=== PATIENT | male | born 1950 | race Caucasian/White ===

== ENCOUNTER 2019-11-01 09:41 | Day surgery (SDC) | payer BC, MEDICARE ==
[~2019-11-01 09:41] MED LIST: Lidocaine 1% PF 2 ML SDV INJECT SCH
[2019-11-01] MEDS: Polymyxin B/Trimethoprim 10 ML Bottle EYERT SCH ×4 (10:42→12:28)
[2019-11-01] MEDS: Brimonidine 0.2% Ophth Soln 5 ML Bottle EYERT SCH ×4 (10:47→12:28)
[2019-11-01] MEDS: Phenylephrine 2.5% Ophth Soln 2 ML Bot EYERT SCH ×5 (10:53→12:08)
[2019-11-01] MEDS: Tropicamide 1% Ophth Soln 15 ML Bottle EYERT SCH ×4 (10:58→11:39)
--- NOTE | 2019-11-01 10:58 | PCM.PREANE ---
Preanesthetic Assessment - Anesthesia/Transfusion/Family Hx Anesthesia History: Prior Anesthesia Without Reaction Family History of Anesthesia Reaction: No Transfusion History: No Prior Transfusion(s) - Review of Systems General: No Symptoms, Other (autoimmune disorder, states under control) Pulmonary: No Symptoms Cardiovascular: No Symptoms Gastrointestinal: No Symptoms Neurological: No Symptoms Other: Reports: None - Physical Assessment NPO Status Date: 10/31/19 NPO Status Time: 20:30 Vital Signs: Last Vital Signs Temp 36.7 C 11/01/19 10:25 Pulse 70 11/01/19 10:25 Resp 16 11/01/19 10:25 BP 136/89 11/01/19 10:25 Pulse Ox 99 11/01/19 10:25 Height: 1.88 m Weight: 100.244 kg ASA Class: 2 Mental Status: Alert & Oriented x3 Dentition: Reports: Normal Dentition Thyro-Mental Finger Breadths: 3 Mouth Opening Finger Breadths: 3 ROM/Head Extension: Full Lungs: Clear to Auscultation, Normal Respiratory Effort - Allergies Allergies/Adverse Reactions: Allergies Allergy/AdvReac Type Severity Reaction Status Date / Time No Known Allergies Allergy Verified 10/31/19 15:46 - Blood Blood Available: No Product(s) Available: None - Anesthesia Plan Pre-Op Medication Ordered: None - Acknowledgements Anesthesia Type Planned: MAC Pt an Appropriate Candidate for the Planned Anesthesia: Yes Alternatives and Risks of Anesthesia Discussed w Pt/Guardian: Yes Pt/Guardian Understands and Agrees with Anesthesia Plan: Yes PreAnesthesia Questionnaire - HOME MEDS Home Medications: Home Meds Econazole Nitrate 1 dose TOP ASDIRECTED PRN 10/31/19 [History] mycophenolate mofetiL [Mycophenolate Mofetil] 1,000 mg PO BID 10/31/19 [History] predniSONE [Prednisone] 20 mg PO DAILY 10/31/19 [History] - CURRENT (IN HOUSE) MEDS Current Meds: Current Medications Brimonidine Tartrate (Alphagan 0.2% Oph Soln) 0 ml EYERT ASDIRECTED BRUNILDA Stop: 11/01/19 18:00 Cefuroxime Sodium (Zinacef) 0 mg EYERT ASDIRECTED BRUNILDA Stop: 11/01/19 18:00 Lidocaine HCl (Xylocaine-Mpf 1%) 1 ml INJECT ASDIRECTED BRUNILDA Stop: 11/01/19 18:00 Phenylephrine HCl (Stu-Synephrine 2.5% Ophth Soln) 0 ml EYERT ASDIRECTED BRUNILDA Stop: 11/01/19 18:00 Pilocarpine HCl (Pilocar 4% Ophth Soln) 0 ml EYERT ASDIRECTED BRUNILDA Stop: 11/01/19 18:00 Polymyxin/Trimethoprim Sulfate (Polytrim Ophth Soln) 0 ml EYERT ASDIRECTED BRUNILDA Stop: 11/01/19 18:00 Tetracaine HCl (Tetracaine 0.5% Steri-Unit Rima) 0 ml EYERT ASDIRECTED BRUNILDA Stop: 11/01/19 18:00 Tropicamide (Mydriacyl 1% Ophth Soln) 0 ml EYERT ASDIRECTED BRUNILDA Stop: 11/01/19 18:00
[2019-11-01] MEDS: Tetracaine HCl/PF 0.5% 4 ML Bottle EYERT SCH ×2 (11:43→12:19)
[2019-11-01] MEDS: Cefuroxime 10 MG/ML SYRINGE EYERT SCH ×2 (12:23→12:27)
[2019-11-01] MEDS: Pilocarpine 4% Ophth Soln 15 ML Bot EYERT SCH ×2 (12:23→12:28)
--- NOTE | 2019-11-01 12:30 | PCM48HPAN ---
Post Anesthesia Note - EVALUATION WITHIN 48HRS OF ANESTHETIC Vital Signs in Normal Range: Yes Patient Participated in Evaluation: Yes Respiratory Function Stable: Yes Airway Patent: Yes Cardiovascular Function Stable: Yes Hydration Status Stable: Yes Pain Control Satisfactory: Yes Nausea and Vomiting Control Satisfactory: Yes Mental Status Recovered: Yes Vital Signs: Last Vital Signs Temp 36.7 C 11/01/19 10:25 Pulse 70 11/01/19 10:25 Resp 16 11/01/19 10:25 BP 136/89 11/01/19 10:25 Pulse Ox 99 11/01/19 10:25
== END 2019-11-01 12:38 | disposition home or self-care (01) ==
LOC: JD.SDS 09:41
PROVIDERS: ATTEND Ophthalmology
DX: H25.813 Combined forms of age-related cataract, bilateral (principal); H35.363 Drusen (degenerative) of macula, bilateral; H35.3131 Nonexudative age-related macular degeneration, bilateral, early dry stage; H16.103 Unspecified superficial keratitis, bilateral; H16.223 Keratoconjunctivitis sicca, not specified as Sjogren's, bilateral; H02.834 Dermatochalasis of left upper eyelid; H02.831 Dermatochalasis of right upper eyelid; L12.0 Bullous pemphigoid; Z87.891 Personal history of nicotine dependence
CPT/HCPCS: 66984; C1780; J0697; J2001

== ENCOUNTER 2020-07-04 06:14 | Inpatient (IN) | payer BC, MEDICARE ==
--- NOTE | 2020-07-03 13:20 | PCM.PREANE ---
Preanesthetic Assessment - Anesthesia/Transfusion/Family Hx Anesthesia History: Prior Anesthesia Without Reaction Family History of Anesthesia Reaction: No Transfusion History: No Prior Transfusion(s) Intubation History: Unknown - Review of Systems General: No Symptoms Pulmonary: No Symptoms (Quit smoking Beers per night) Cardiovascular: No Symptoms Gastrointestinal: No Symptoms (History of Sjogren's Syndrome) Neurological: No Symptoms Other: Reports: None (AutoImmune Disorder/History of bladder distention-self catheterization.) - Physical Assessment NPO Status Date: 07/03/20 NPO Status Time: 20:00 Vital Signs: HR:90 B/P:147/97 Resp:16 Temp:97 Sat:97% Height: 1.91 m Weight: 98 kg ASA Class: 3 Mental Status: Alert & Oriented x3 Airway Class: Mallampati = 2 Dentition: Reports: Normal Dentition, [place](s), Implants, Caries Thyro-Mental Finger Breadths: 3 Mouth Opening Finger Breadths: 3 ROM/Head Extension: Full Lungs: Clear to Auscultation, Normal Respiratory Effort Cardiovascular: Regular Rate, Regular Rhythm, No Murmurs - Lab Values: Laboratory Last Values MRSA (PCR) Negative 06/19/20 14:01 All labs reviewed and noted and within acceptable ranges to proceed with scheduled procedure. - Imaging/EKG Impressions: EKG: SR rate=79m LAD (borderline), left atrial enlargement CXR: negative - Allergies Allergies/Adverse Reactions: Allergies Allergy/AdvReac Type Severity Reaction Status Date / Time No Known Allergies Allergy Verified 07/03/20 14:13 - Anesthesia Plan Pre-Op Medication Ordered: Other (Pre-Op meds: lyrica, oxycodone, tylenol all P.O. @) - Acknowledgements Anesthesia Type Planned: General Anesthesia, Spinal Pt an Appropriate Candidate for the Planned Anesthesia: Yes Alternatives and Risks of Anesthesia Discussed w Pt/Guardian: Yes Pt/Guardian Understands and Agrees with Anesthesia Plan: Yes PreAnesthesia Questionnaire - HOME MEDS Home Medications: Home Meds mycophenolate mofetiL [Mycophenolate Mofetil] 1,000 mg PO BID 10/31/19 [History] Calcium Carbonate [Calcium] 500 mg PO DAILY 07/03/20 [History] Cholecalciferol (Vitamin D3) [Vitamin D3] 5,000 unit PO DAILY 08/18/20 [History] Ciclopirox [Loprox 0.77% Lotion] 1 dose TOP BID PRN 07/03/20 [History] Clobetasol [Temovate 0.05%] 1 dose TOP BID PRN 07/03/20 [History] - CURRENT (IN HOUSE) MEDS Current Meds: Current Medications Lactated Ringer's (Ringers, Lactated) 1,000 mls @ 125 mls/hr IV ASDIRECTED BRUNILDA Stop: 07/04/20 23:00 Lidocaine/Sodium Bicarbonate (Buffered Lidocaine 1% In Ns 8.4%) 0.25 ml IDERM ONETIME PRN PRN Reason: Prior to IV Start Stop: 07/04/20 18:00 Sodium Chloride (Saline Flush) 10 ml FLUSH ASDIRECTED PRN PRN Reason: Keep Vein Open Stop: 07/04/20 18:00
[~2020-07-04 06:14] MED LIST changes: +Acetaminophen 325 MG Tab PO SCH; +Lactated Ringers 1,000 ML IV SCH; -Lidocaine 1% PF 2 ML SDV INJECT SCH; +Lidocaine 1%/Sod Bicarbonate in NS 8.4% 1 ML Syringe IDERM PRN; +Pregabalin 25 MG Cap PO SCH; +Sodium Chloride 0.9% 10 ML Syringe FLUSH PRN; +oxyCODONE ER 10 MG TAB.ER PO SCH
[2020-07-04] MEDS ORDERED: Lidocaine 1% 4 ML ONE (06:22)
[2020-07-04] MEDS ORDERED: Lactated Ringers 2,000 ML ONE (06:22)
[2020-07-04] MEDS ORDERED: Ondansetron 4 MG/2 ML SDV ONE (06:22)
[2020-07-04] MEDS ORDERED: Ketorolac 30 MG/ML SDV ONE (06:22)
[2020-07-04] MEDS ORDERED: fentaNYL 100 MCG/2 ML SDV ONE (06:23)
[2020-07-04] MEDS ORDERED: Propofol 200 MG/20 ML SDV ONE ×2 (06:23→08:20)
[2020-07-04] MEDS ORDERED: Midazolam 1 MG/ML 2 ML SDV ONE (06:24)
[2020-07-04] MEDS ORDERED: Ketamine 500 mg/10 ML MDV ONE (06:25)
[2020-07-04] MEDS ORDERED: ceFAZolin 1 GM Vial ONE (06:28)
[2020-07-04] MEDS ORDERED: Iodine/Sodium Iodide 2% Tincture 30 ML Bottle ONE (06:29)
[2020-07-04] MEDS ORDERED: Vancomycin 1 GM SDV ONE (06:29)
[2020-07-04] MEDS ORDERED: Bupivacaine 0.25% 10 ML SDV ONE (06:29)
[2020-07-04] MEDS ORDERED: Morphine 8 MG, EPINEPHrine 0.3 MG, Cefuroxime 750 MG, Ketorolac 30 MG, Sodium Chloride ... PRN ×5 (07:06)
[2020-07-04] MEDS ORDERED: Ketorolac 15 MG/ML SDV IVPUSH PRN (07:06)
[2020-07-04] MEDS ORDERED: Naloxone 0.4 MG/ML SDV IVPUSH PRN (07:07)
[2020-07-04] MEDS ORDERED: Bisacodyl 5 MG Tab PO PRN (07:07)
[2020-07-04] MEDS ORDERED: Morphine 2 MG/ML SYRINGE IVPUSH PRN (07:07)
[2020-07-04] MEDS ORDERED: Ondansetron 4 MG/2 ML SDV IVPUSH PRN ×2 (07:07→07:33)
[2020-07-04] MEDS ORDERED: Dexamethasone 4 MG/ML 5 ML MDV ONE ×2 (07:08)
[2020-07-04] MEDS ORDERED: HYDROmorphone 0.5 MG/0.5 ML Syringe IVPUSH PRN (07:33)
[2020-07-04] MEDS ORDERED: fentaNYL 100 MCG/2 ML SDV IVPUSH PRN (07:33)
[2020-07-04] MEDS ORDERED: diphenhydrAMINE 50 MG/ML SDV IVPUSH PRN (07:33)
[2020-07-04] MEDS ORDERED: ePHEDrine 50 MG/ML SDV IVPUSH PRN (07:33)
[2020-07-04] MEDS ORDERED: Phenylephrine 1 MG in Sodium Chloride 0.9% 10 ML IV PRN (07:45)
[2020-07-04] MEDS ORDERED: ePHEDrine Sulfate/0.9% NaCl/Pf 25 MG/5 ML SYRINGE IV ONE (08:29)
--- NOTE | 2020-07-04 09:12 | PCM.OPNOTE ---
- General Post-Op/Procedure Note Date of Surgery/Procedure: 07/04/20 Operative Procedure(s): right total hip arthroplasty Pre Op Diagnosis: right hip osteoarthritis Post-Op Diagnosis: Same Anesthesia Technique: Local, MAC, Spinal Primary Surgeon: Kun Winkler Anesthesia Provider: Selam Dickerson Bundle Cutter: Alyssa Blue Bundle Cutter: Radha Houser EBNichole in mLs: 300 Complications: None Condition: Good Free Text/Narrative:: Intake & Output 07/03/20 07/04/20 07/04/20 22:59 06:59 14:59 Output Total 375 Balance -375 60 cup 8 stem 36+5 head
--- NOTE | 2020-07-04 09:32 | PCM.POSTAN ---
POST ANESTHESIA ASSESSMENT - MENTAL STATUS Mental Status: Alert - VITAL SIGNS Vital Signs: Last Vital Signs Temp 97 07/04/20923 Pulse 79 07/04/20923 Resp 11 07/04/20923 BP 116/80 07/04/20923 Pulse Ox 96 07/04/20923 - RESPIRATORY Respiratory Status: Respiratory Rate WNL, Airway Patent, O2 Saturation Stable - CARDIOVASCULAR CV Status: Pulse Rate WNL, Blood Pressure Stable - GASTROINTESTINAL GI Status: No Symptoms - POST OP HYDRATION Hydration Status: Adequate & Stable
--- NOTE | 2020-07-04 10:03 | CR ---
Pelvis and right hip: AP view of the pelvis was obtained as well as crosstable lateral views of the right hip. Right hip prosthesis is seen. Components are aligned. Soft tissue air is noted from the surgical procedure. Disc space narrowing is noted within the lower lumbar spine with endplate osteophytes. Mild joint space narrowing is seen within the left hip. Impression: 1. Recently placed right hip prosthesis. 2. Degenerative change as noted above. Diagnostic code #3 This report was dictated in MDT
[2020-07-04] MEDS ORDERED: CICLOPIROX TOP PRN (10:41)
[2020-07-04] MEDS ORDERED: CLOBETASOL TOP PRN (10:41)
[2020-07-04] MEDS: Acetaminophen/oxyCODONE 325-5 MG Tab PO PRN ×2 (14:33→19:44)
[2020-07-04] MEDS: ceFAZolin 2 GM in Premix Bag 1 BAG IV SCH ×2 (14:34→22:51)
[2020-07-04] MEDS ORDERED: Cyclobenzaprine 10 MG Tab PO PRN (15:00)
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
[2020-07-04] MEDS ORDERED: Acetaminophen 325 MG Tab PO PRN (16:45)
[2020-07-04] MEDS: Docusate Sodium 100 MG Cap PO SCH (20:36)
[2020-07-04] MEDS: Famotidine 20 MG Tab PO SCH (20:36)
[2020-07-04] MEDS ORDERED: Sennosides 8.6 MG Tab PO PRN (21:00)
[2020-07-04] MEDS ORDERED: Magnesium Hydroxide 400 MG/5 ML Susp 30 ML Cup PO PRN (21:00)
[2020-07-05] MEDS: Acetaminophen/oxyCODONE 325-5 MG Tab PO PRN ×2 (03:07→09:40)
[2020-07-05] MEDS: ceFAZolin 2 GM in Premix Bag 1 BAG IV SCH (06:58)
--- NOTE | 2020-07-05 07:07 | PCM48HPAN ---
Post Anesthesia Note - EVALUATION WITHIN 48HRS OF ANESTHETIC Vital Signs in Normal Range: Yes Patient Participated in Evaluation: Yes Respiratory Function Stable: Yes Airway Patent: Yes Cardiovascular Function Stable: Yes Hydration Status Stable: Yes Pain Control Satisfactory: Yes Nausea and Vomiting Control Satisfactory: Yes Mental Status Recovered: Yes Vital Signs: Last Vital Signs Temp 36.4 C 07/05/20 03:15 Pulse 67 07/05/20 03:15 Resp 16 07/05/20 03:15 BP 141/91 H 07/05/20 03:17 Pulse Ox 95 07/05/20 03:15
--- NOTE | 2020-07-05 07:10 | PCM.SURGPN ---
- General Info Date of Service: 07/05/20 POD#: 1 Functional Status: Reports: Pain Controlled, Tolerating Diet, Ambulating, Urinating, Incentive Spirometry, Other (The pt notes soreness at quad today. He is pleased with his progress regarding mobility.) - Patient Data Vitals - Most Recent: Last Vital Signs Temp 97.5 F 07/05/20 03:15 Pulse 67 07/05/20 03:15 Resp 16 07/05/20 03:15 BP 141/91 H 07/05/20 03:17 Pulse Ox 95 07/05/20 03:15 Weight - Most Recent: 221 lb 4.8 oz I&O - Last 24 Hours: Intake & Output 07/04/20 07/05/20 07/05/20 22:59 06:59 14:59 Intake Total 1330 850 Output Total 1200 450 Balance 130 400 Lab Results Last 24 Hrs: Laboratory Results - last 24 hr 07/04/20 07/05/20 07/05/20 Range/Units 06:37 05:40 05:40 WBC 8.03 (4.23-9.07) K/mm3 RBC 3.96 L (4.63-6.08) M/mm3 Hgb 12.1 L (13.7-17.5) gm/dl Hct 38.5 L (40.1-51.0) % MCV 97.2 H (79.0-92.2) fl MCH 30.6 (25.7-32.2) pg MCHC 31.4 L (32.2-35.5) g/dl RDW Std Deviation 43.0 (35.1-43.9) fL Plt Count 224 (163-337) K/mm3 MPV 10.3 (9.4-12.3) fl PT (9.7-12.0) SECONDS INR APTT (22-31) SECONDS Sodium 136 (136-145) mEq/L Potassium 4.7 (3.5-5.1) mEq/L Chloride 103 (98-107) mEq/L Carbon Dioxide 25 (21-32) mEq/L Anion Gap 12.7 (5-15) BUN 16 (7-18) mg/dL Creatinine 1.0 (0.7-1.3) mg/dL Est Cr Clr Drug Dosing 83.34 mL/min Estimated GFR (MDRD) > 60 (>60) mL/min BUN/Creatinine Ratio 16.0 (14-18) Glucose 100 (80-115) mg/dL Calcium 8.4 L (8.5-10.1) mg/dL Phosphorus 4.0 (2.6-4.7) mg/dL Magnesium 1.8 (1.8-2.4) mg/dl Total Bilirubin 0.3 (0.2-1.0) mg/dL AST 26 (15-37) U/L ALT 16 (16-63) U/L Alkaline Phosphatase 75 (46-116) U/L Troponin I < 0.017 (0.00-0.056) ng/mL Total Protein 6.2 L (6.4-8.2) g/dl Albumin 2.7 L (3.4-5.0) g/dl Globulin 3.5 gm/dL Albumin/Globulin Ratio 0.8 L (1-2) Blood Type B POSITIVE Gel Antibody Screen Negative 07/05/20 Range/Units 05:40 WBC (4.23-9.07) K/mm3 RBC (4.63-6.08) M/mm3 Hgb (13.7-17.5) gm/dl Hct (40.1-51.0) % MCV (79.0-92.2) fl MCH (25.7-32.2) pg MCHC (32.2-35.5) g/dl RDW Std Deviation (35.1-43.9) fL Plt Count (163-337) K/mm3 MPV (9.4-12.3) fl PT 11.0 (9.7-12.0) SECONDS INR 1.03 APTT 26 (22-31) SECONDS Sodium (136-145) mEq/L Potassium (3.5-5.1) mEq/L Chloride (98-107) mEq/L Carbon Dioxide (21-32) mEq/L Anion Gap (5-15) BUN (7-18) mg/dL Creatinine (0.7-1.3) mg/dL Est Cr Clr Drug Dosing mL/min Estimated GFR (MDRD) (>60) mL/min BUN/Creatinine Ratio (14-18) Glucose (80-115) mg/dL Calcium (8.5-10.1) mg/dL Phosphorus (2.6-4.7) mg/dL Magnesium (1.8-2.4) mg/dl Total Bilirubin (0.2-1.0) mg/dL AST (15-37) U/L ALT (16-63) U/L Alkaline Phosphatase (46-116) U/L Troponin I (0.00-0.056) ng/mL Total Protein (6.4-8.2) g/dl Albumin (3.4-5.0) g/dl Globulin gm/dL Albumin/Globulin Ratio (1-2) Blood Type Gel Antibody Screen Med Orders - Current: Current Medications Acetaminophen (Tylenol) 650 mg PO Q6H PRN PRN Reason: Pain (mild 1-3) Aspirin (Ecotrin) 325 mg PO BID [facility] Bisacodyl (Dulcolax) 5 mg PO DAILY PRN PRN Reason: Constipation Calcium Carbonate/Glycine (Calcium Carbonate) 600 mg PO DAILY [facility] Cholecalciferol (Vitamin D3) 5,000 unit PO DAILY [facility] Cyclobenzaprine HCl (Flexeril) 10 mg PO TID PRN PRN Reason: Spasms Docusate Sodium (Colace) 100 mg PO BID [facility] Last Admin: 07/04/20 20:36 Dose: 100 mg Documented by: Famotidine (Pepcid) 20 mg PO Q12H [facility] Last Admin: 07/04/20 20:36 Dose: 20 mg Documented by: Cefazolin Sodium/Dextrose 2 gm (/ Premix) 50 mls @ 100 mls/hr IV Q8H [facility] Stop: 07/05/20 07:29 Last Admin: 07/05/20 06:58 Dose: 100 mls/hr Documented by: Ketorolac Tromethamine (Toradol) 15 mg IVPUSH Q6H PRN PRN Reason: Pain Last Admin: 07/05/20 03:09 Dose: 15 mg Documented by: Magnesium Hydroxide (Milk Of Magnesia) 30 ml PO BID PRN PRN Reason: Constipation Morphine Sulfate (Morphine) 2 mg IVPUSH Q2H PRN PRN Reason: Breakthrough Pain Naloxone HCl (Narcan) 0.1 mg IVPUSH Q5M PRN PRN Reason: Oversedation Non-Formulary Medication (Clobetasol [Temovate 0.05%]) 1 dose TOP BID PRN PRN Reason: skin complications Ondansetron HCl (Zofran) 4 mg IVPUSH Q6H PRN PRN Reason: Nausea/Vomiting Oxycodone/Acetaminophen (Percocet 325-5 Mg) 1 - 2 tab PO Q4H PRN PRN Reason: Pain Last Admin: 07/05/20 03:07 Dose: 2 tab Documented by: Ciclopirox [Loprox 0 (.77% Lotion]) 0 each TOP BID PRN PRN Reason: skin complications Senna (Senna) 8.6 mg PO BID PRN PRN Reason: Constipation Discontinued Medications Acetaminophen (Tylenol) 975 mg PO ONETIME BRUNILDA Stop: 07/04/20 12:00 Last Admin: 07/04/20 07:04 Dose: 975 mg Documented by: Bupivacaine HCl (Sensorcaine-Mpf 0.25%) Confirm Administered Dose 30 ml .ROUTE .STK-MED ONE Stop: 07/04/20 06:30 Last Admin: 07/04/20 08:50 Dose: 30 ml Documented by: Cefazolin Sodium (Ancef) Confirm Administered Dose 2 gm .ROUTE .STK-MED ONE Stop: 07/04/20 06:29 Last Admin: 07/04/20 08:45 Dose: 2 gm Documented by: Morphine Sulfate 8 mg/Epinephrine HCl 0.3 mg/Cefuroxime Sodium 750 mg/Ketorolac Tromethamine 30 mg/Sodium Chloride 7.9 ml 0 mg .XX ASDIRECTED PRN PRN Reason: Pain Stop: 07/04/20 12:00 Last Admin: 07/04/20 08:50 Dose: 788.3 mg Documented by: Dexamethasone (Dexamethasone) Confirm Administered Dose 0 mg .ROUTE .STK-MED ONE Stop: 07/04/20 07:09 Dexamethasone (Dexamethasone) Confirm Administered Dose 20 mg .ROUTE .STK-MED ONE Stop: 07/04/20 07:09 Diphenhydramine HCl (Benadryl) 25 mg IVPUSH Q6H PRN PRN Reason: pruritis Stop: 07/04/20 18:00 Ephedrine Sulfate (Ephedrine Sulfate) 5 mg IVPUSH ASDIRECTED PRN PRN Reason: Hypotension Stop: 07/04/20 18:00 Ephedrine Sulfate (Ephedrine 25 Mg/5 Ml Syringe) Confirm Administered Dose 25 mg IV .STK-MED ONE Stop: 07/04/20 08:30 Fentanyl (Sublimaze) Confirm Administered Dose 100 mcg .ROUTE .STK-MED ONE Stop: 07/04/20 06:24 Fentanyl (Sublimaze) 50 mcg IVPUSH Q5M PRN PRN Reason: Pain Stop: 07/04/20 18:00 Hydromorphone HCl (Dilaudid) 0.5 mg IVPUSH ONETIME PRN PRN Reason: Pain Stop: 07/04/20 18:00 Lactated Ringer's (Ringers, Lactated) 1,000 mls @ 125 mls/hr IV ASDIRECTED BRUNILDA Stop: 07/04/20 23:00 Last Admin: 07/04/20 06:40 Dose: 125 mls/hr Documented by: Lidocaine HCl (Xylocaine-Mpf 1%) Confirm Administered Dose 4 mls @ as directed .ROUTE .STK-MED ONE Stop: 07/04/20 06:23 Lactated Ringer's (Ringers, Lactated) Confirm Administered Dose 2,000 mls @ as directed .ROUTE .STK-MED ONE Stop: 07/04/20 06:23 Phenylephrine HCl 1 mg/ Sodium (Chloride) 10.1 mls @ 1 mls/sec IV TITRATE PRN; Protocol PRN Reason: SEE COMMENTS Iodine (Iodine 2% Mild Tincture) Confirm Administered Dose 30 ml .ROUTE .STK-MED ONE Stop: 07/04/20 06:30 Last Admin: 07/04/20 08:44 Dose: 18 ml Documented by: Ketamine HCl (Ketalar) Confirm Administered Dose 500 mg .ROUTE .STK-MED ONE Stop: 07/04/20 06:26 Ketorolac Tromethamine (Toradol) Confirm Administered Dose 30 mg .ROUTE .STK-MED ONE Stop: 07/04/20 06:23 Lidocaine/Sodium Bicarbonate (Buffered Lidocaine 1% In Ns 8.4%) 0.25 ml IDERM ONETIME PRN PRN Reason: Prior to IV Start Stop: 07/04/20 18:00 Last Admin: 07/04/20 06:40 Dose: 0.25 ml Documented by: Midazolam HCl (Versed 1 Mg/Ml) Confirm Administered Dose 2 mg .ROUTE .STK-MED ONE Stop: 07/04/20 06:25 Miscellaneous Medication (Phenylephrine 1 Mg/10 Ml-Ns) Confirm Administered Dose 1 mg IV .STK-MED ONE Stop: 07/04/20 06:23 Ondansetron HCl (Zofran) Confirm Administered Dose 4 mg .ROUTE .STK-MED ONE Stop: 07/04/20 06:23 Ondansetron HCl (Zofran) 4 mg IVPUSH ONETIME PRN PRN Reason: Nausea/Vomiting Stop: 07/04/20 18:00 Oxycodone HCl (Oxycontin) 10 mg PO ONETIME BRUNILDA Stop: 07/04/20 12:00 Last Admin: 07/04/20 07:04 Dose: 10 mg Documented by: Pregabalin (Lyrica) 50 mg PO ONETIME BRUNILDA Stop: 07/04/20 12:00 Last Admin: 07/04/20 07:04 Dose: 50 mg Documented by: Propofol (Diprivan 20 Ml) Confirm Administered Dose 400 mg .ROUTE .STK-MED ONE Stop: 07/04/20 06:24 Propofol (Diprivan 20 Ml) Confirm Administered Dose 200 mg .ROUTE .STK-MED ONE Stop: 07/04/20 08:21 Sodium Chloride (Saline Flush) 10 ml FLUSH ASDIRECTED PRN PRN Reason: Keep Vein Open Stop: 07/04/20 18:00 Tranexamic Acid (Cyklokapron) Confirm Administered Dose 1,000 mg .ROUTE .STK-MED ONE Stop: 07/04/20 06:29 Last Admin: 07/04/20 08:55 Dose: 1,000 mg Documented by: Vancomycin HCl (Vancomycin) Confirm Administered Dose 1 gm .ROUTE .STK-MED ONE Stop: 07/04/20 06:30 Last Admin: 07/04/20 08:56 Dose: 1 gm Documented by: - Exam Wound/Incisions: Dressing Dry and Intact, Other (GRABIEL dressing in place and functioning properly.) General: Alert, Cooperative, No Acute Distress Lungs: Normal Respiratory Effort Extremities: Other (NVS intact for RLE. Elijah's negative.) Sepsis Event Note - Evaluation Sepsis Screening Result: No Definite Risk - Focused Exam Vital Signs: Vital Signs Temp Pulse Resp BP BP Pulse Ox 07/05/20 03:17 141/91 H 07/05/20 03:15 97.5 F 67 16 95 07/04/20 23:56 97.7 F 74 16 112/91 H 95 07/04/20 20:35 97.7 F 80 16 129/91 H 95 - Problem List Review Problem List Initiated/Reviewed/Updated: Yes - My Orders Last 24 Hours: Active Orders 24 hr Category Date Time Status Patient Status [ADT] Routine ADT 07/04/20 07:07 Active Ambulate [RC] PER UNIT ROUTINE Care 07/04/20 07:07 Active Antiembolic Devices [RC] BID Care 07/04/20 07:08 Active CIWAA Assessment [RC] Q4H Care 07/04/20 16:56 Active Cooling Warming Measures [RC] ASDIRECTED Care 07/04/20 07:33 Active Incentive Spirometry [RT Incentive Spirometry] [RC] Care 07/04/20 16:56 Active Q1HWA May Shower [RC] ASDIRECTED Care 07/04/20 07:07 Active Notify Provider Consults [RC] ASDIRECTED Care 07/04/20 07:10 Active Notify Provider [RC] ASDIRECTED Care 07/04/20 07:33 Active Oxygen Therapy [RC] ASDIRECTED Care 07/04/20 07:33 Active Pulse Oximetry [RC] ASDIRECTED Care 07/04/20 07:33 Active RT Incentive Spirometry [RC] Q1HWA Care 07/04/20 07:06 Active Ready for Discharge [RC] PER UNIT ROUTINE Care 07/05/20 07:06 Ordered Up to Chair [RC] ASDIRECTED Care 07/04/20 07:07 Active Vital Signs [RC] Q4HR Care 07/04/20 07:07 Active Consult to Physician [CONS] Routine Cons 07/04/20 07:07 Active OT Evaluation and Treatment [CONS] Routine Cons 07/04/20 07:06 Active PT Evaluation and Treatment [CONS] Routine Cons 07/04/20 07:06 Active [employer] Diet [DIET] Diet 07/04/20 Lunch Active Acetaminophen [TylenoL] Med 07/04/20 16:45 Active 650 mg PO Q6H PRN Acetaminophen/oxyCODONE [Percocet 325-5 MG] Med 07/04/20 07:06 Active 1 - 2 tab PO Q4H PRN Aspirin [Ecotrin] Med 07/05/20 09:00 Active 325 mg PO BID Calcium Carbonate Med 07/05/20 09:00 Active 600 mg PO DAILY Cholecalciferol (Vitamin D3) [Vitamin D3] Med 07/05/20 09:00 Active 5,000 unit PO DAILY Clobetasol [Temovate 0.05%] Med 07/04/20 10:41 Pending 1 dose TOP BID PRN Cyclobenzaprine [Flexeril] Med 07/04/20 15:00 Active 10 mg PO TID PRN Docusate Sodium [Colace] Med 07/04/20 21:00 Active 100 mg PO BID Famotidine [Pepcid] Med 07/04/20 21:00 Active 20 mg PO Q12H Ketorolac [Toradol] Med 07/04/20 07:06 Active 15 mg IVPUSH Q6H PRN Magnesium Hydroxide [Milk of Magnesia] Med 07/04/20 21:00 Active 30 ml PO BID PRN Morphine Med 07/04/20 07:07 Active 2 mg IVPUSH Q2H PRN Naloxone [Narcan] Med 07/04/20 07:07 Active 0.1 mg IVPUSH Q5M PRN Ondansetron [Zofran] Med 07/04/20 07:07 Active 4 mg IVPUSH Q6H PRN Patient's Own Medication [Ptom] Med 07/04/20 10:41 Active 0 each TOP BID PRN Sennosides [Senna] Med 07/04/20 21:00 Active 8.6 mg PO BID PRN bisacodyL [Dulcolax] Med 07/04/20 07:07 Active 5 mg PO DAILY PRN ceFAZolin [Ancef] 2 gm Med 07/04/20 15:00 Active Premix Bag 1 bag IV Q8H Antiembolic Hose [OM.PC] Routine Oth 07/04/20 07:06 Ordered Hip Precautions Posterior [OM.PC] Routine Oth 07/04/20 07:06 Ordered Ice Therapy [OM.PC] Per Unit Routine Oth 07/04/20 07:08 Ordered Sequential Compression Device [OM.PC] Per Unit Routine Oth 07/04/20 07:06 Ordered Resuscitation Status Routine Resus Stat 07/04/20 07:07 Ordered EKG 12 Lead [EK] Routine Ther 07/04/20 14:00 Ordered Medication Orders Acetaminophen (Tylenol) 650 mg PO Q6H PRN PRN Reason: Pain (mild 1-3) Aspirin (Ecotrin) 325 mg PO BID [facility] Bisacodyl (Dulcolax) 5 mg PO DAILY PRN PRN Reason: Constipation Calcium Carbonate/Glycine (Calcium Carbonate) 600 mg PO DAILY [facility] Cholecalciferol (Vitamin D3) 5,000 unit PO DAILY [facility] Cyclobenzaprine HCl (Flexeril) 10 mg PO TID PRN PRN Reason: Spasms Docusate Sodium (Colace) 100 mg PO BID [facility] Last Admin: 07/04/20 20:36 Dose: 100 mg Documented by: SULTANA Famotidine (Pepcid) 20 mg PO Q12H [facility] Last Admin: 07/04/20 20:36 Dose: 20 mg Documented by: SULTANA Cefazolin Sodium/Dextrose 2 gm (/ Premix) 50 mls @ 100 mls/hr IV Q8H [facility] Stop: 07/05/20 07:29 Last Admin: 07/05/20 06:58 Dose: 100 mls/hr Documented by: Infusion: 07/04/20 23:21 Dose: 100 mls/hr Documented by: Admin: 07/04/20 22:51 Dose: 100 mls/hr Documented by: Infusion: 07/04/20 15:04 Dose: 100 mls/hr Documented by: Admin: 07/04/20 14:34 Dose: 100 mls/hr Documented by: MEHRAN Ketorolac Tromethamine (Toradol) 15 mg IVPUSH Q6H PRN PRN Reason: Pain Last Admin: 07/05/20 03:09 Dose: 15 mg Documented by: MARIANO Magnesium Hydroxide (Milk Of Magnesia) 30 ml PO BID PRN PRN Reason: Constipation Morphine Sulfate (Morphine) 2 mg IVPUSH Q2H PRN PRN Reason: Breakthrough Pain Naloxone HCl (Narcan) 0.1 mg IVPUSH Q5M PRN PRN Reason: Oversedation Non-Formulary Medication (Clobetasol [Temovate 0.05%]) 1 dose TOP BID PRN PRN Reason: skin complications Ondansetron HCl (Zofran) 4 mg IVPUSH Q6H PRN PRN Reason: Nausea/Vomiting Oxycodone/Acetaminophen (Percocet 325-5 Mg) 1 - 2 tab PO Q4H PRN PRN Reason: Pain Last Admin: 07/05/20 03:07 Dose: 2 tab Documented by: Admin: 07/04/20 19:44 Dose: 2 tab Documented by: Admin: 07/04/20 14:33 Dose: 2 tab Documented by: MEHRAN Ciclopirox [Loprox 0 (.77% Lotion]) 0 each TOP BID PRN PRN Reason: skin complications Senna (Senna) 8.6 mg PO BID PRN PRN Reason: Constipation - Assessment Assessment (Free Text/Narrative):: POD#1 - s/p right LUCIUS - Plan Plan (Free Text/Narrative):: 1. Hgb 12.1 2. Discharge to home today if cleared by Hospitalist service and therapies. 3. ASA PO BID, frequent mobility, TEDs. The pt is a nonsmoker. 4. HOLD use of CellCept until eval at Clinic. The pt's case was discussed with Dr. Winkler.
--- NOTE | 2020-07-05 07:44 | PCM.DCSUM1 ---
Discharge Summary - Hospital Course Brief History: Garrett 69 yo male who underwent right LUCIUS with Dr. Winkler on 07-04-2020. The procedure was completed under spinal anesthesia with MAC. The pt tolerated the procedure well and was admitted to the Medical-Surgical Unit. The pt received Ancef terra-operatively. He participated in P.T. and O.T. and progressed well. He was allowed to WBAT and used a FWW for mobility. The pt's surgical wound was dressed with a GRABIEL dressing and remained clean and dry. On POD#1, the pt was started on 325mg ASA BID for VTE prophylaxis. The pt used TEDs and SCDs also. On POD#1, the pt's hemoglobin was 12.1. Medical management was provided by the Hospitalist service and the pt's hospital course was uneventful. On POD#1, the pt was deemed appropriate for discharge to home with his . - Discharge Data Discharge Date: 07/05/20 Discharge Disposition: Home, Self-Care 01 Condition: Good - Referral to Home Health Primary Care Physician: Bossman Real MD - Patient Summary/Data Operative Procedure(s) Performed: right total hip arthroplasty Consults: Consultations 07/04/20 07:06 OT Evaluation and Treatment [CONS] Routine PT Evaluation and Treatment [CONS] Routine 07/04/20 07:07 Consult to Physician [CONS] Routine - Patient Instructions Diet: Usual Diet as Tolerated Activity: Apply Ice, As Tolerated, Elevate Extremity, Full Weight Bearing Activity, Other: Follow the total hip precautions. Driving: Do Not Drive Showering/Bathing: May Shower Wound/Incision Care: Keep Operative Site/Wound Site Clean and Dry, Do NOT Change Dressing Notify Provider of: Fever, Increased Pain, Swelling and Redness, Drainage, Nausea and/or Vomiting Other/Special Instructions: Please get up and moving around EVERY HOUR while awake. This helps to prevent blood clots. Please use your walker and have help with mobility as needed. Take a short walk in your home every hour while awake. Please take 325mg aspirin TWICE daily. The aspirin is being used for blood clot prevention and not for pain management so please do not miss a dose of the medication. You could use a medication like Pepcid or Tagamet and a medication like Prilosec or Nexium to protect your stomach while you are using the aspirin. At home, please complete the exercises that you learned during the Hospital stay. Schedule for physical therapy. Follow the total hip precautions. Use the pain medication as needed. The medication may cause drowsiness and constipation. Contact your primary care provider for instructions if you are constipated. You may use a stool softener like docusate sodium or Colace 100mg twice daily and/or a laxative like Miralax daily for constipation. Increase your water and fiber intake while you are using the pain medication. Please discontinue use of the prescription pain medication as soon as able. The goal is to use the least amount of prescription pain medication as needed and to discontinue use of the prescription pain medication as soon as possible. Please do not use other medications that may cause drowsiness (other pain medications, anxiety pills, cold medications, sleeping pills, etc) while using the prescription pain medication. Do not use alcohol while using the pain medication. You may use acetaminophen or Tylenol for pain management, however, please ensure you are not using over 4000 mg or 4 grams of acetaminophen per day from all sources. Your pain medication has 325mg of acetaminophen per tablet. At this time, please do not use ibuprofen (Motrin, Advil) or naproxen (Aleve) for pain management as you are using the aspirin. When the aspirin course is completed in 5 weeks, you could use ibuprofen or naproxen for pain man agement (if this is allowed by your primary care provider). Wear the JOEL hose during the day and you may remove these at night. Elevate the limb to decrease swelling. Place ice to the area often. Place a towel between your skin and the blue pad. Use the incentive spirometer often. Take deep breaths throughout the day. Please keep the dressing in place until follow-up. Notify the Clinic if the dressing becomes saturated. Increase your protein intake while you are healing. If you have been instructed by your primary care provider to check your blood sugars, please closely monitor your blood sugars and notify your primary care provider with abnormal values. Elevated blood sugars increases the risk of infection. It is normal to have swelling and bruising at the surgical site, as well as above and below the surgical site. Please HOLD use of CellCept until your evaluation at the Clinic next week. If you note changes with your skin, please contact the Clinic. The GRABIEL dressing will automatically turn off in 1 week. If the GRABIEL suction seal is broken and the machine has an error message, you may turn off the machine and simply keep the dressing in place until you follow-up at the Clinic next week. Call the Clinic with questions or concerns - [phone] and leave a message for the nurse. - Discharge Plan *PRESCRIPTION DRUG MONITORING PROGRAM REVIEWED*: Yes *COPY OF PRESCRIPTION DRUG MONITORING REPORT IN PATIENT REX: No Prescriptions/Med Rec: Aspirin [Ecotrin EC] 325 mg PO BID #70 tab.ec Cyclobenzaprine [Flexeril] 10 mg PO BID PRN #20 tablet PRN Reason: Spasms Famotidine [Pepcid] 20 mg PO Q12H #70 tablet Acetaminophen/oxyCODONE [Percocet 325-5 MG] 1 - 2 tab PO Q4H PRN #60 tablet PRN Reason: Pain Home Medications: Home Meds Calcium Carbonate [Calcium] 500 mg PO DAILY 07/03/20 [History] Cholecalciferol (Vitamin D3) [Vitamin D3] 5,000 unit PO DAILY 07/03/20 [History] Ciclopirox [Loprox 0.77% Lotion] 1 dose TOP BID PRN 07/03/20 [History] Clobetasol [Temovate 0.05%] 1 dose TOP BID PRN 07/03/20 [History] Acetaminophen/oxyCODONE [Percocet 325-5 MG] 1 - 2 tab PO Q4H PRN #60 tablet 07/05/20 [Rx] Aspirin [Ecotrin EC] 325 mg PO BID #70 tab.ec 07/05/20 [Rx] Cyclobenzaprine [Flexeril] 10 mg PO BID PRN #20 tablet 07/05/20 [Rx] Docusate Sodium [Colace] 100 mg PO BID cap 07/05/20 [Rx] Famotidine [Pepcid] 20 mg PO Q12H #70 tablet 07/05/20 [Rx] Magnesium Hydroxide [Milk of Magnesia] 30 ml PO BID PRN cup 07/05/20 [Rx] Sennosides [Senna] 8.6 mg PO BID PRN tablet 07/05/20 [Rx] Patient Handouts: Total Hip Replacement, [id number] Referrals: Alyssa Blue PA-C [Physician Sales And Marketing Associate] - Bossman Real MD [Primary Care Provider] - - Discharge Summary/Plan Comment DC Time >30 min.: No - Patient Data Vitals - Most Recent: Last Vital Signs Temp 97.5 F 07/05/20 03:15 Pulse 67 07/05/20 03:15 Resp 16 07/05/20 03:15 BP 141/91 H 07/05/20 03:17 Pulse Ox 95 07/05/20 03:15 Weight - Most Recent: 221 lb 4.8 oz I&O - Last 24 hours: Intake & Output 07/04/20 07/05/20 07/05/20 22:59 06:59 14:59 Intake Total 1330 850 Output Total 1200 450 Balance 130 400 Lab Results - Last 24 hrs: Laboratory Results - last 24 hr 07/04/20 07/05/20 07/05/20 Range/Units 06:37 05:40 05:40 WBC 8.03 (4.23-9.07) K/mm3 RBC 3.96 L (4.63-6.08) M/mm3 Hgb 12.1 L (13.7-17.5) gm/dl Hct 38.5 L (40.1-51.0) % MCV 97.2 H (79.0-92.2) fl MCH 30.6 (25.7-32.2) pg MCHC 31.4 L (32.2-35.5) g/dl RDW Std Deviation 43.0 (35.1-43.9) fL Plt Count 224 (163-337) K/mm3 MPV 10.3 (9.4-12.3) fl PT (9.7-12.0) SECONDS INR APTT (22-31) SECONDS Sodium 136 (136-145) mEq/L Potassium 4.7 (3.5-5.1) mEq/L Chloride 103 (98-107) mEq/L Carbon Dioxide 25 (21-32) mEq/L Anion Gap 12.7 (5-15) BUN 16 (7-18) mg/dL Creatinine 1.0 (0.7-1.3) mg/dL Est Cr Clr Drug Dosing 83.34 mL/min Estimated GFR (MDRD) > 60 (>60) mL/min BUN/Creatinine Ratio 16.0 (14-18) Glucose 100 (80-115) mg/dL Calcium 8.4 L (8.5-10.1) mg/dL Phosphorus 4.0 (2.6-4.7) mg/dL Magnesium 1.8 (1.8-2.4) mg/dl Total Bilirubin 0.3 (0.2-1.0) mg/dL AST 26 (15-37) U/L ALT 16 (16-63) U/L Alkaline Phosphatase 75 (46-116) U/L Troponin I < 0.017 (0.00-0.056) ng/mL Total Protein 6.2 L (6.4-8.2) g/dl Albumin 2.7 L (3.4-5.0) g/dl Globulin 3.5 gm/dL Albumin/Globulin Ratio 0.8 L (1-2) Blood Type B POSITIVE Gel Antibody Screen Negative 07/05/20 Range/Units 05:40 WBC (4.23-9.07) K/mm3 RBC (4.63-6.08) M/mm3 Hgb (13.7-17.5) gm/dl Hct (40.1-51.0) % MCV (79.0-92.2) fl MCH (25.7-32.2) pg MCHC (32.2-35.5) g/dl RDW Std Deviation (35.1-43.9) fL Plt Count (163-337) K/mm3 MPV (9.4-12.3) fl PT 11.0 (9.7-12.0) SECONDS INR 1.03 APTT 26 (22-31) SECONDS Sodium (136-145) mEq/L Potassium (3.5-5.1) mEq/L Chloride (98-107) mEq/L Carbon Dioxide (21-32) mEq/L Anion Gap (5-15) BUN (7-18) mg/dL Creatinine (0.7-1.3) mg/dL Est Cr Clr Drug Dosing mL/min Estimated GFR (MDRD) (>60) mL/min BUN/Creatinine Ratio (14-18) Glucose (80-115) mg/dL Calcium (8.5-10.1) mg/dL Phosphorus (2.6-4.7) mg/dL Magnesium (1.8-2.4) mg/dl Total Bilirubin (0.2-1.0) mg/dL AST (15-37) U/L ALT (16-63) U/L Alkaline Phosphatase (46-116) U/L Troponin I (0.00-0.056) ng/mL Total Protein (6.4-8.2) g/dl Albumin (3.4-5.0) g/dl Globulin gm/dL Albumin/Globulin Ratio (1-2) Blood Type Gel Antibody Screen Med Orders - Current: Current Medications Acetaminophen (Tylenol) 650 mg PO Q6H PRN PRN Reason: Pain (mild 1-3) Aspirin (Ecotrin) 325 mg PO BID [facility] Bisacodyl (Dulcolax) 5 mg PO DAILY PRN PRN Reason: Constipation Calcium Carbonate/Glycine (Calcium Carbonate) 600 mg PO DAILY [facility] Cholecalciferol (Vitamin D3) 5,000 unit PO DAILY [facility] Cyclobenzaprine HCl (Flexeril) 10 mg PO TID PRN PRN Reason: Spasms Docusate Sodium (Colace) 100 mg PO BID [facility] Last Admin: 07/04/20 20:36 Dose: 100 mg Documented by: Famotidine (Pepcid) 20 mg PO Q12H [facility] Last Admin: 07/04/20 20:36 Dose: 20 mg Documented by: Ketorolac Tromethamine (Toradol) 15 mg IVPUSH Q6H PRN PRN Reason: Pain Last Admin: 07/05/20 03:09 Dose: 15 mg Documented by: Magnesium Hydroxide (Milk Of Magnesia) 30 ml PO BID PRN PRN Reason: Constipation Morphine Sulfate (Morphine) 2 mg IVPUSH Q2H PRN PRN Reason: Breakthrough Pain Naloxone HCl (Narcan) 0.1 mg IVPUSH Q5M PRN PRN Reason: Oversedation Non-Formulary Medication (Clobetasol [Temovate 0.05%]) 1 dose TOP BID PRN PRN Reason: skin complications Ondansetron HCl (Zofran) 4 mg IVPUSH Q6H PRN PRN Reason: Nausea/Vomiting Oxycodone/Acetaminophen (Percocet 325-5 Mg) 1 - 2 tab PO Q4H PRN PRN Reason: Pain Last Admin: 07/05/20 03:07 Dose: 2 tab Documented by: Ciclopirox [Loprox 0 (.77% Lotion]) 0 each TOP BID PRN PRN Reason: skin complications Senna (Senna) 8.6 mg PO BID PRN PRN Reason: Constipation Discontinued Medications Acetaminophen (Tylenol) 975 mg PO ONETIME [facility] Stop: 07/04/20 12:00 Last Admin: 07/04/20 07:04 Dose: 975 mg Documented by: Bupivacaine HCl (Sensorcaine-Mpf 0.25%) Confirm Administered Dose 30 ml .ROUTE .STK-MED ONE Stop: 07/04/20 06:30 Last Admin: 07/04/20 08:50 Dose: 30 ml Documented by: Cefazolin Sodium (Ancef) Confirm Administered Dose 2 gm .ROUTE .STK-MED ONE Stop: 07/04/20 06:29 Last Admin: 07/04/20 08:45 Dose: 2 gm Documented by: Morphine Sulfate 8 mg/Epinephrine HCl 0.3 mg/Cefuroxime Sodium 750 mg/Ketorolac Tromethamine 30 mg/Sodium Chloride 7.9 ml 0 mg .XX ASDIRECTED PRN PRN Reason: Pain Stop: 07/04/20 12:00 Last Admin: 07/04/20 08:50 Dose: 788.3 mg Documented by: Dexamethasone (Dexamethasone) Confirm Administered Dose 0 mg .ROUTE .STK-MED ONE Stop: 07/04/20 07:09 Dexamethasone (Dexamethasone) Confirm Administered Dose 20 mg .ROUTE .STK-MED ONE Stop: 07/04/20 07:09 Diphenhydramine HCl (Benadryl) 25 mg IVPUSH Q6H PRN PRN Reason: pruritis Stop: 07/04/20 18:00 Ephedrine Sulfate (Ephedrine Sulfate) 5 mg IVPUSH ASDIRECTED PRN PRN Reason: Hypotension Stop: 07/04/20 18:00 Ephedrine Sulfate (Ephedrine 25 Mg/5 Ml Syringe) Confirm Administered Dose 25 mg IV .STK-MED ONE Stop: 07/04/20 08:30 Fentanyl (Sublimaze) Confirm Administered Dose 100 mcg .ROUTE .STK-MED ONE Stop: 07/04/20 06:24 Fentanyl (Sublimaze) 50 mcg IVPUSH Q5M PRN PRN Reason: Pain Stop: 07/04/20 18:00 Hydromorphone HCl (Dilaudid) 0.5 mg IVPUSH ONETIME PRN PRN Reason: Pain Stop: 07/04/20 18:00 Lactated Ringer's (Ringers, Lactated) 1,000 mls @ 125 mls/hr IV ASDIRECTED [facility] Stop: 07/04/20 23:00 Last Admin: 07/04/20 06:40 Dose: 125 mls/hr Documented by: Lidocaine HCl (Xylocaine-Mpf 1%) Confirm Administered Dose 4 mls @ as directed .ROUTE .STK-MED ONE Stop: 07/04/20 06:23 Lactated Ringer's (Ringers, Lactated) Confirm Administered Dose 2,000 mls @ as directed .ROUTE .STK-MED ONE Stop: 07/04/20 06:23 Cefazolin Sodium/Dextrose 2 gm (/ Premix) 50 mls @ 100 mls/hr IV Q8H [facility] Stop: 07/05/20 07:29 Last Admin: 07/05/20 06:58 Dose: 100 mls/hr Documented by: Phenylephrine HCl 1 mg/ Sodium (Chloride) 10.1 mls @ 1 mls/sec IV TITRATE PRN; Protocol PRN Reason: SEE COMMENTS Iodine (Iodine 2% Mild Tincture) Confirm Administered Dose 30 ml .ROUTE .STK-MED ONE Stop: 07/04/20 06:30 Last Admin: 07/04/20 08:44 Dose: 18 ml Documented by: Ketamine HCl (Ketalar) Confirm Administered Dose 500 mg .ROUTE .STK-MED ONE Stop: 07/04/20 06:26 Ketorolac Tromethamine (Toradol) Confirm Administered Dose 30 mg .ROUTE .STK-MED ONE Stop: 07/04/20 06:23 Lidocaine/Sodium Bicarbonate (Buffered Lidocaine 1% In Ns 8.4%) 0.25 ml IDERM ONETIME PRN PRN Reason: Prior to IV Start Stop: 07/04/20 18:00 Last Admin: 07/04/20 06:40 Dose: 0.25 ml Documented by: Midazolam HCl (Versed 1 Mg/Ml) Confirm Administered Dose 2 mg .ROUTE .STK-MED ON E Stop: 07/04/20 06:25 Miscellaneous Medication (Phenylephrine 1 Mg/10 Ml-Ns) Confirm Administered Dose 1 mg IV .STK-MED ONE Stop: 07/04/20 06:23 Ondansetron HCl (Zofran) Confirm Administered Dose 4 mg .ROUTE .STK-MED ONE Stop: 07/04/20 06:23 Ondansetron HCl (Zofran) 4 mg IVPUSH ONETIME PRN PRN Reason: Nausea/Vomiting Stop: 07/04/20 18:00 Oxycodone HCl (Oxycontin) 10 mg PO ONETIME [facility] Stop: 07/04/20 12:00 Last Admin: 07/04/20 07:04 Dose: 10 mg Documented by: Pregabalin (Lyrica) 50 mg PO ONETIME [facility] Stop: 07/04/20 12:00 Last Admin: 07/04/20 07:04 Dose: 50 mg Documented by: Propofol (Diprivan 20 Ml) Confirm Administered Dose 400 mg .ROUTE .STK-MED ONE Stop: 07/04/20 06:24 Propofol (Diprivan 20 Ml) Confirm Administered Dose 200 mg .ROUTE .STK-MED ONE Stop: 07/04/20 08:21 Sodium Chloride (Saline Flush) 10 ml FLUSH ASDIRECTED PRN PRN Reason: Keep Vein Open Stop: 07/04/20 18:00 Tranexamic Acid (Cyklokapron) Confirm Administered Dose 1,000 mg .ROUTE .STK-MED ONE Stop: 07/04/20 06:29 Last Admin: 07/04/20 08:55 Dose: 1,000 mg Documented by: Vancomycin HCl (Vancomycin) Confirm Administered Dose 1 gm .ROUTE .STK-MED ONE Stop: 07/04/20 06:30 Last Admin: 07/04/20 08:56 Dose: 1 gm Documented by:
[2020-07-05] MEDS ORDERED: Calcium Carbonate 600 MG Tab PO SCH (09:00)
[2020-07-05] MEDS ORDERED: Cholecalciferol (Vitamin D3) 5,000 UNIT Tab PO SCH (09:00)
[2020-07-05] MEDS ORDERED: Aspirin 325 MG Tab.EC PO SCH (09:00)
[2020-07-05] MEDS: Famotidine 20 MG Tab PO SCH (09:42)
[2020-07-05] MEDS: Docusate Sodium 100 MG Cap PO SCH (09:42)
--- NOTE | 2020-07-05 14:14 | PCM.CONSN ---
- General Info Date of Service: 07/05/20 Admission Dx/Problem (Free Text): Admission Diagnosis/Problem Admission Diagnosis/Problem Osteoarthritis of hip Subjective Update: Patient's pain is well controlled. He has not noticed any new skin lesions. He denies shortness of breath. No chest pain. No shaking, anxiety, symptoms of alcohol withdrawal. He worked with PT this AM and reports pain is controlled and he was able to walk around the [place]. Functional Status: Reports: Pain Controlled - Patient Data Vitals - Most Recent: Last Vital Signs Temp 97.5 F 07/05/20 03:15 Pulse 67 07/05/20 03:15 Resp 16 07/05/20 03:15 BP 141/91 H 07/05/20 03:17 Pulse Ox 95 07/05/20 03:15 Weight - Most Recent: 221 lb 4.8 oz I&O - Last 24 Hours: Intake & Output 07/04/20 07/05/20 07/05/20 22:59 06:59 14:59 Intake Total 1330 850 0 Output Total 1200 450 Balance 130 400 0 Med Orders - Current: Current Medications Acetaminophen (Tylenol) 650 mg PO Q6H PRN PRN Reason: Pain (mild 1-3) Aspirin (Ecotrin) 325 mg PO BID [facility] Last Admin: 07/05/20 09:42 Dose: 325 mg Documented by: Bisacodyl (Dulcolax) 5 mg PO DAILY PRN PRN Reason: Constipation Calcium Carbonate/Glycine (Calcium Carbonate) 600 mg PO DAILY [facility] Last Admin: 07/05/20 09:43 Dose: 600 mg Documented by: Cholecalciferol (Vitamin D3) 5,000 unit PO DAILY [facility] Last Admin: 07/05/20 09:43 Dose: 5,000 unit Documented by: Cyclobenzaprine HCl (Flexeril) 10 mg PO TID PRN PRN Reason: Spasms Docusate Sodium (Colace) 100 mg PO BID [facility] Last Admin: 07/05/20 09:42 Dose: 100 mg Documented by: Famotidine (Pepcid) 20 mg PO Q12H [facility] Last Admin: 07/05/20 09:42 Dose: 20 mg Documented by: Ketorolac Tromethamine (Toradol) 15 mg IVPUSH Q6H PRN PRN Reason: Pain Last Admin: 07/05/20 03:09 Dose: 15 mg Documented by: Magnesium Hydroxide (Milk Of Magnesia) 30 ml PO BID PRN PRN Reason: Constipation Morphine Sulfate (Morphine) 2 mg IVPUSH Q2H PRN PRN Reason: Breakthrough Pain Naloxone HCl (Narcan) 0.1 mg IVPUSH Q5M PRN PRN Reason: Oversedation Ondansetron HCl (Zofran) 4 mg IVPUSH Q6H PRN PRN Reason: Nausea/Vomiting Oxycodone/Acetaminophen (Percocet 325-5 Mg) 1 - 2 tab PO Q4H PRN PRN Reason: Pain Last Admin: 07/05/20 09:40 Dose: 2 tab Documented by: Ciclopirox [Loprox 0 (.77% Lotion]) 0 each TOP BID PRN PRN Reason: skin complications Senna (Senna) 8.6 mg PO BID PRN PRN Reason: Constipation Discontinued Medications Acetaminophen (Tylenol) 975 mg PO ONETIME [facility] Stop: 07/04/20 12:00 Last Admin: 07/04/20 07:04 Dose: 975 mg Documented by: Bupivacaine HCl (Sensorcaine-Mpf 0.25%) Confirm Administered Dose 30 ml .ROUTE .STK-MED ONE Stop: 07/04/20 06:30 Last Admin: 07/04/20 08:50 Dose: 30 ml Documented by: Cefazolin Sodium (Ancef) Confirm Administered Dose 2 gm .ROUTE .STK-MED ONE Stop: 07/04/20 06:29 Last Admin: 07/04/20 08:45 Dose: 2 gm Documented by: Morphine Sulfate 8 mg/Epinephrine HCl 0.3 mg/Cefuroxime Sodium 750 mg/Ketorolac Tromethamine 30 mg/Sodium Chloride 7.9 ml 0 mg .XX ASDIRECTED PRN PRN Reason: Pain Stop: 07/04/20 12:00 Last Admin: 07/04/20 08:50 Dose: 788.3 mg Documented by: Dexamethasone (Dexamethasone) Confirm Administered Dose 0 mg .ROUTE .STK-MED ONE Stop: 07/04/20 07:09 Dexamethasone (Dexamethasone) Confirm Administered Dose 20 mg .ROUTE .STK-MED ONE Stop: 07/04/20 07:09 Diphenhydramine HCl (Benadryl) 25 mg IVPUSH Q6H PRN PRN Reason: pruritis Stop: 07/04/20 18:00 Ephedrine Sulfate (Ephedrine Sulfate) 5 mg IVPUSH ASDIRECTED PRN PRN Reason: Hypotension Stop: 07/04/20 18:00 Ephedrine Sulfate (Ephedrine 25 Mg/5 Ml Syringe) Confirm Administered Dose 25 mg IV .STK-MED ONE Stop: 07/04/20 08:30 Fentanyl (Sublimaze) Confirm Administered Dose 100 mcg .ROUTE .STK-MED ONE Stop: 07/04/20 06:24 Fentanyl (Sublimaze) 50 mcg IVPUSH Q5M PRN PRN Reason: Pain Stop: 07/04/20 18:00 Hydromorphone HCl (Dilaudid) 0.5 mg IVPUSH ONETIME PRN PRN Reason: Pain Stop: 07/04/20 18:00 Lactated Ringer's (Ringers, Lactated) 1,000 mls @ 125 mls/hr IV ASDIRECTED [facility] Stop: 07/04/20 23:00 Last Admin: 07/04/20 06:40 Dose: 125 mls/hr Documented by: Lidocaine HCl (Xylocaine-Mpf 1%) Confirm Administered Dose 4 mls @ as directed .ROUTE .STK-MED ONE Stop: 07/04/20 06:23 Lactated Ringer's (Ringers, Lactated) Confirm Administered Dose 2,000 mls @ as directed .ROUTE .STK-MED ONE Stop: 07/04/20 06:23 Cefazolin Sodium/Dextrose 2 gm (/ Premix) 50 mls @ 100 mls/hr IV Q8H [facility] Stop: 07/05/20 07:29 Last Admin: 07/05/20 06:58 Dose: 100 mls/hr Documented by: Phenylephrine HCl 1 mg/ Sodium (Chloride) 10.1 mls @ 1 mls/sec IV TITRATE PRN; Protocol PRN Reason: SEE COMMENTS Iodine (Iodine 2% Mild Tincture) Confirm Administered Dose 30 ml .ROUTE .STK-MED ONE Stop: 07/04/20 06:30 Last Admin: 07/04/20 08:44 Dose: 18 ml Documented by: Ketamine HCl (Ketalar) Confirm Administered Dose 500 mg .ROUTE .STK-MED ONE Stop: 07/04/20 06:26 Ketorolac Tromethamine (Toradol) Confirm Administered Dose 30 mg .ROUTE .STK-MED ONE Stop: 07/04/20 06:23 Lidocaine/Sodium Bicarbonate (Buffered Lidocaine 1% In Ns 8.4%) 0.25 ml IDERM ONETIME PRN PRN Reason: Prior to IV Start Stop: 07/04/20 18:00 Last Admin: 07/04/20 06:40 Dose: 0.25 ml Documented by: Midazolam HCl (Versed 1 Mg/Ml) Confirm Administered Dose 2 mg .ROUTE .STK-MED ONE Stop: 07/04/20 06:25 Miscellaneous Medication (Phenylephrine 1 Mg/10 Ml-Ns) Confirm Administered Dose 1 mg IV .STK-MED ONE Stop: 07/04/20 06:23 Non-Formulary Medication (Clobetasol [Temovate 0.05%]) 1 dose TOP BID PRN PRN Reason: skin complications Ondansetron HCl (Zofran) Confirm Administered Dose 4 mg .ROUTE .STK-MED ONE Stop: 07/04/20 06:23 Ondansetron HCl (Zofran) 4 mg IVPUSH ONETIME PRN PRN Reason: Nausea/Vomiting Stop: 07/04/20 18:00 Oxycodone HCl (Oxycontin) 10 mg PO ONETIME [facility] Stop: 07/04/20 12:00 Last Admin: 07/04/20 07:04 Dose: 10 mg Documented by: Pregabalin (Lyrica) 50 mg PO ONETIME [facility] Stop: 07/04/20 12:00 Last Admin: 07/04/20 07:04 Dose: 50 mg Documented by: Propofol (Diprivan 20 Ml) Confirm Administered Dose 400 mg .ROUTE .STK-MED ONE Stop: 07/04/20 06:24 Propofol (Diprivan 20 Ml) Confirm Administered Dose 200 mg .ROUTE .STK-MED ONE Stop: 07/04/20 08:21 Sodium Chloride (Saline Flush) 10 ml FLUSH ASDIRECTED PRN PRN Reason: Keep Vein Open Stop: 07/04/20 18:00 Tranexamic Acid (Cyklokapron) Confirm Administered Dose 1,000 mg .ROUTE .STK-MED ONE Stop: 07/04/20 06:29 Last Admin: 07/04/20 08:55 Dose: 1,000 mg Documented by: Vancomycin HCl (Vancomycin) Confirm Administered Dose 1 gm .ROUTE .STReciclata-MED ONE Stop: 07/04/20 06:30 Last Admin: 07/04/20 08:56 Dose: 1 gm Documented by: - Exam Physical Findings Comments:: General: Alert, Oriented, Cooperative HEENT: EOMI, Hearing Intact, Pupils Equal, Pupils Reactive Lungs: Clear to Auscultation, Normal Respiratory Effort. No: Crackles, Rales, Rhonchi Cardiovascular: Regular Rate, Regular Rhythm. No: Systolic Murmur, Diastolic Murmur, Rubs GI/Abdominal Exam: Normal Bowel Sounds, Soft, Non-Tender, No Distention Extremities: Normal Capillary Refill, Other (Right lateral thigh with surgical dressing in place, clean, no erythema, no swelling) Peripheral Pulses: 2+: Posterior Tibial (L), Posterior Tibial (R) Skin: Warm, Dry, Intact Sepsis Event Note - Evaluation Sepsis Screening Result: No Definite Risk Consult PN Assessment/Plan POD#: 1 (1) Osteoarthritis of right hip SNOMED Code(s): 457120037922903 Code(s): M16.11 - UNILATERAL PRIMARY OSTEOARTHRITIS, RIGHT HIP Current Visit: Yes (2) Bullous pemphigoid SNOMED Code(s): 59094699 Code(s): L12.0 - BULLOUS PEMPHIGOID Current Visit: Yes (3) Chronic alcohol use SNOMED Code(s): 886387 Code(s): Z72.89 - OTHER PROBLEMS RELATED TO LIFESTYLE Current Visit: Yes Problem List Initiated/Reviewed/Updated: Yes Plan: Osteoarthritis Right hip- s/p Right total hip replacement POD 1 H/H stable, patient's pain well controlled. Working well with PT. PLAN - Continue vitamin D and calcium supplementation - PT recommends home w/ outpatient PT. - Per ortho, aspirin 325mg oral BID for DVT prophylaxis for 4 weeks - Pt discharged today Bullous Pemphigoid- WBC normal, CBC unremarkable. No skin lesions today PLAN - Holding Cellcept for 1 week. Chronic alcohol use- Electrolytes are normal. No signs of withdrawal - Advise to keep alcohol use to 1-2 beers a day. Pain control- - Discharge medications per ortho PROPHYLAXIS GI- per ortho, pepcid 20mg oral BID, docusate 100mg oral BID DVT- per ortho, aspirin 325mg oral BID CODE STATUS FULL CODE SOCIAL Lives at home. Former smoker quit in September 2019. Drinks 3-4 beers a night. DISPOSITION The patient is discharged today to home with outpatient PT.
--- NOTE | 2020-07-09 22:28 | OR ---
DATE OF OPERATION: 07/04/2020 SURGEON: Kun Winkler MD OPERATION PERFORMED: Right total hip arthroplasty. PREOPERATIVE DIAGNOSIS: Right hip osteoarthrosis. POSTOPERATIVE DIAGNOSIS: Right hip osteoarthrosis. ANESTHESIA: Local MAC with spinal. ANESTHESIA PROVIDER: Selam Dickerson CRNA. BIOMETRICS INSTRUCTOR: Alyssa Blue PA-C, and Radha Houser LPN. ESTIMATED BLOOD LOSS: 300 mL. COMPLICATIONS: None. CONDITION: Stable. IMPLANT: 1. [place] size 60 Tritanium II solid acetabular cup. 2. [place] size 8 Accolate II stem. 3. Nathan size 36 +5 Biolox femoral head. DESCRIPTION OF PROCEDURE: The patient was identified in the preop holding area. Proper site was marked and identified by the surgeon. The patient was taken back to the operating theater where after adequate anesthesia, the patient was placed in a left lateral decubitus position. Axillary roll was placed. All pegs were then placed and well padded. The patient's gluteal fold was parallel to the floor. The right hip was then sterilely prepped and draped in the usual sterile fashion. OR time-out was performed. The patient received 2 g IV Ancef. A standard posterior incision was made centered over the greater trochanter. This was taken down to the IT band and gluteal fascia which was incised along the incisional length. Charnley retractor was then placed. Short external rotators were identified and takedown. The short external rotators as well as capsulotomy was performed from the level of the piriformis down to the lesser trochanter. The hip was then dislocated. Neck cut was completed and found to be adequate. Attention was turned to the acetabulum. Anterior and posterior acetabular retractors were then placed. Circumferential removal of the pulvinar as well as labrum was then done at this time. Starting with a size 54 reamer, I was able to ream up to a size 60, which had adequate purchase and good bony bleeding bed. A Nathan size 60 solid acetabular cup was then impacted into place in an anatomic position, and the there at 36 flat liner was impacted in place. Attention was turned to the femur. A box chisel was used out laterally. Starter awl was placed down the canal, starting with the 0 broach, I was able to broach up to a size 8, which was found to be rotationally and vertically stable a 36 +0 was then trialed and was found to be a minor amount short, so we did a 36 +5, had adequate anglican of leg lengths and was stable throughout range of motion. Trial implants were then dislocated and removed. The size 8 Accolate II stem was then impacted into place and a 36 +5 Biolox femoral head was impacted in place. The hip was then relocated. #5 Ethibond suture was used for closure of short external rotators and capsule. 1 L dilute Betadine solution was irrigated through the hip along with 3 L pulse lavage irrigation with Ancef. Topical tranexamic acid and vancomycin powder were applied. #2 barbed suture was used for closure of IT band and gluteal fascia, 2-0 Vicryl was used subcutaneously, and Prineo was used for the skin. The patient tolerated the procedure well and sent to PACU in stable condition. MMODAL /[id number]
== END 2020-07-05 12:03 | disposition home or self-care (01) | DRG 301 ==
LOC: JD.MS 06:14
PROVIDERS: ADMIT Orthopaedic Surgery; ATTEND Orthopaedic Surgery
PROC: 0SR90JZ Replacement of Right Hip Joint with Synthetic Substitute, Open Approach (ICD-10-PCS; principal; 2020-07-04)
DX: M16.11 Unilateral primary osteoarthritis, right hip (principal); M35.00 Sjogren syndrome, unspecified; D64.9 Anemia, unspecified; L12.0 Bullous pemphigoid; D89.0 Polyclonal hypergammaglobulinemia; Z87.891 Personal history of nicotine dependence; Z72.89 Other problems related to lifestyle; Z11.59 Encounter for screening for other viral diseases
CPT/HCPCS: 01214; 36415; 73501-26-RT; 73501-RT; 80053; 83735; 84100; 84484; 85027; 85610; 85730; 86850; 86900; 86901; 87641; 93005; 97110-GP; 97116-GP; 97161-GP; 97165-GO; 97530-GP; 97535-GO; 99221; 99231; A9270-GY; C1776; J0171; J0690; J0697; J1100; J1885; J2001; J2250; J2270; J2370; J2405; J2704; J3010; J3370; J3490; J7120; U0002

== ENCOUNTER → 2021-02-25 | Day surgery (SDC) | payer BC, MEDICARE, OTHER ==
[~2021-02-25] MED LIST changes: -Acetaminophen 325 MG Tab PO SCH; +Dextrose 5%-Lactated Ringers 1,000 ML IV SCH; -Lactated Ringers 1,000 ML IV SCH; -Lidocaine 1%/Sod Bicarbonate in NS 8.4% 1 ML Syringe IDERM PRN; +Midazolam 1 MG/ML 2 ML SDV ONE; -Pregabalin 25 MG Cap PO SCH; +Propofol 200 MG/20 ML SDV ONE; -Sodium Chloride 0.9% 10 ML Syringe FLUSH PRN; -oxyCODONE ER 10 MG TAB.ER PO SCH
--- NOTE | 2021-02-25 18:37 | EDM.PDOC ---
ED HPI GENERAL MEDICAL PROBLEM - General Chief Complaint: Gastrointestinal Problem Stated Complaint: DYSPHAGIA Time Seen by Provider: 02/25/21 18:32 Source of Information: Reports: Patient History Limitations: Reports: No Limitations - History of Present Illness INITIAL COMMENTS - FREE TEXT/NARRATIVE: 70-year-old male presents to the ED with a foreign body in his upper esophagus hypopharynx. He states it was the last bite of a apple that he ate that got stuck in his upper esophagus. He never choked and he does not feel dyspneic. Water will come right back up however when he tries to swallow. The only thing he has had to eat since noon would have been the apple. He has had problems before with esophagitis and peptic ulcer disease involving the lower esophagus. Biopsies prove that he did not have a Cotter's esophagus on last occasion. He states he rarely has heartburn and does not use Prilosec or proton pump inhibitors very often. This is the first time that something is ever gotten stuck and not come back up I by regurgitation or not gone down. Apple got stuck about 1630 hrs. today. Onset: Today, Sudden Onset Date: 02/25/21 Onset Time: 16:30 Duration: Hour(s):, Constant Location: Reports: Neck (Is pressure right between behind the sternal notch) Quality: Reports: Ache (.) Severity: Mild Improves with: Reports: None Worsens with: Reports: Other Context: Denies: Activity, Exercise, Lifting, Sick Contact, Trauma, Other Associated Symptoms: Denies: No Other Symptoms, Confusion, Chest Pain, Cough, cough w sputum, Diaphoresis, Fever/Chills, Headaches, Loss of Appetite, Malaise, Nausea/Vomiting, Rash, Seizure, Shortness of Breath, Syncope, Weakness Treatments PRORATE CLERK: Reports: Other (see below) (None.) - Related Data Allergies Allergy/AdvReac Type Severity Reaction Status Date / Time No Known Allergies Allergy Verified 07/04/20 11:45 Home Meds: Home Meds Omeprazole 20 mg PO ACBREAKFAST 30 Days #30 cap.sr 02/25/21 [Rx] Past Medical History HEENT History: Reports: Other (See Below) Other HEENT History: dry eyes, wears glasses, Cardiovascular History: Reports: None Respiratory History: Reports: None Gastrointestinal History: Reports: None Genitourinary History: Reports: UTI, Recurrent, Other (See Below) (Intermittent problems with urinary retention) Other Genitourinary History: self catheterization for distended bladder Musculoskeletal History: Reports: Osteoarthritis, Other (See Below) Other Musculoskeletal History: hip pain, finger fracture, knee pain, shoulder pain Neurological History: Reports: None Psychiatric History: Reports: None Endocrine/Metabolic History: Reports: None Hematologic History: Reports: Anemia Other Hematologic History: positive STEVIE antibody, elevated ESR Immunologic History: Reports: None, Other (See Below) Other Immunologic History: auto immune disease; 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 She has been on prednisone and CellCept and has had monoclonal antibody i nfusions in October and again in mid November for pemphigoid with really good success. 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 - Infectious Disease History Infectious Disease History: Reports: Other (See Below) Other Infectious Disease History: unknown - Past Surgical History Head Surgeries/Procedures: Reports: None HEENT Surgical History: Reports: Cataract Surgery Cardiovascular Surgical History: Reports: None Respiratory Surgical History: Reports: None GI Surgical History: Reports: Colonoscopy, Hernia, Inguinal Male Surgical History: Reports: None Endocrine Surgical History: Reports: None Neurological Surgical History: Reports: None Musculoskeletal Surgical History: Reports: Hip Replacement Oncologic Surgical History: Reports: None Dermatological Surgical History: Reports: None Social & Family History - Family History Family Medical History: No Pertinent Family History GI: Reports: Other (See Below) - Tobacco Use Tobacco Use Status *Q: Never Tobacco User - Caffeine Use Caffeine Use: Reports: Coffee - Recreational Drug Use Recreational Drug Use: No - Living Situation & Occupation Living situation: Reports: Occupation: Employed ED ROS ENT - Review of Systems Review Of Systems: See Below Constitutional: Denies: Fever, Chills, Malaise, Weakness, Fatigue, Decreased Appetite, Weight Loss HEENT: Reports: Glasses Respiratory: Reports: No Symptoms. Denies: Shortness of Breath, Wheezing, Pleuritic Chest Pain Cardiovascular: Reports: No Symptoms Endocrine: Reports: No Symptoms GI/Abdominal: Reports: No Symptoms : Reports: Frequency, Urgency, Other Musculoskeletal: Reports: Neck Pain, Back Pain (And problems with urinary retention requiring self-catheterization.), Joint Pain Skin: Reports: Other (With ulcerations in his mouth) Neurological: Reports: No Symptoms ( and extremities.) Psychiatric: Reports: No Symptoms Hematologic/Lymphatic: Reports: No Symptoms Immunologic: Reports: No Symptoms ED EXAM, ENT - Physical Exam Exam: See Below Exam Limited By: No Limitations General Appearance: Alert, WD/WN, No Apparent Distress, Other (Temperature is 36.3 C pulse is 70 and sinus. Respiratory is 20 with O2 sats 100% room air BP is 156 107 at time of admission to the ED. It has come down to 142/100.) Eye Exam: Bilateral Eye: Normal Inspection (No scleral icterus no blepharal pallor.), PERRL Ears: Normal External Exam Mouth/Throat: Normal Inspection, Normal Gums, Normal Lips, Normal Oropharynx, Normal Teeth Head: Atraumatic, Normocephalic Neck: Normal Inspection, Supple, Non-Tender, Full Range of Motion. No: Carotid Bruit, Lymphadenopathy (L), Lymphadenopathy (R) Respiratory/Chest: No Respiratory Distress, Lungs Clear, Normal Breath Sounds, No Accessory Muscle Use Cardiovascular: Normal Peripheral Pulses, Regular Rate, Rhythm, No Edema, No Gallop, No Murmur, No Rub GI/Abdominal: Normal Bowel Sounds, Soft, Non-Tender, No Organomegaly, No Abnormal Bruit, No Mass, Pelvis Stable, Other (Has an umbilical hernia that is easily reducible and does not bother him.) Neurological: Alert, Oriented, CN II-XII Intact, Normal Cognition Psychiatric: Normal Affect, Normal Mood Skin: Warm, Dry, Intact, Normal Color, No Rash #1 Interpretation EKG Date: 02/25/21 Time: 18:56 Rhythm: NSR Rate (Beats/Min): 70 Ursa: LAD-Left Ursa Deviation (Left axis deviation of -20 degrees) P-Wave: Enlarged (Biatrial hypertrophy) ST-T: Other (Diffuse early repolarization pattern T wave flattening aVL nonspecific finding) [place]/PQ Interval: Borderline ECG Course - Vital Signs Last Recorded V/S: Last Vital Signs Temp 36.7 C 02/25/21 22:15 Pulse 78 02/25/21 22:15 Resp 16 02/25/21 22:15 BP 132/90 02/25/21 22:15 Pulse Ox 95 04/12/21 22:15 - Orders/Labs/Meds Orders: Medication Orders Dextrose/Lactated Ringer's (Dextrose 5%-Lactated Ringers) 1,000 mls @ 100 mls/hr IV ASDIRECTED BRUNILDA Last Admin: 02/25/21 19:47 Dose: 100 mls/hr Documented by: JUDIE Labs: Laboratory Tests 02/25/21 02/25/21 02/25/21 Range/Units 18:35 18:35 18:35 WBC 4.26 (4.23-9.07) K/mm3 RBC 4.64 (4.63-6.08) M/mm3 Hgb 14.2 D (13.7-17.5) gm/dl Hct 44.1 (40.1-51.0) % MCV 95.0 H (79.0-92.2) fl MCH 30.6 (25.7-32.2) pg MCHC 32.2 (32.2-35.5) g/dl RDW Std Deviation 41.2 (35.1-43.9) fL Plt Count 234 (163-337) K/mm3 MPV 10.2 (9.4-12.3) fl Neut % (Auto) 47.8 (34.0-67.9) % Lymph % (Auto) 32.6 (21.8-53.1) % Day % (Auto) 15.0 H (5.3-12.2) % Eos % (Auto) 4.2 (0.8-7.0) Baso % (Auto) 0.2 (0.1-1.2) % Neut # (Auto) 2.03 (1.78-5.38) K/mm3 Lymph # (Auto) 1.39 (1.32-3.57) K/mm3 Day # (Auto) 0.64 (0.30-0.82) K/mm3 Eos # (Auto) 0.18 (0.04-0.54) K/mm3 Baso # (Auto) 0.01 (0.01-0.08) K/mm3 PT 11.4 (9.7-12.0) SECONDS INR 1.07 APTT 26.2 (21.7-31.4) SECONDS Sodium 142 (136-145) mEq/L Potassium 4.3 (3.5-5.1) mEq/L Chloride 108 H (98-107) mEq/L Carbon Dioxide 25 (21-32) mEq/L Anion Gap 13.3 (5-15) BUN 16 (7-18) mg/dL Creatinine 1.1 (0.7-1.3) mg/dL Est Cr Clr Drug Dosing 70.55 mL/min Estimated GFR (MDRD) > 60 (>60) mL/min BUN/Creatinine Ratio 14.5 (14-18) Glucose 84 (80-115) mg/dL Calcium 8.8 (8.5-10.1) mg/dL Magnesium 1.8 (1.8-2.4) mg/dl Total Bilirubin 0.4 (0.2-1.0) mg/dL AST 19 (15-37) U/L ALT 19 (16-63) U/L Alkaline Phosphatase 127 H (46-116) U/L Total Protein 7.1 (6.4-8.2) g/dl Albumin 3.5 (3.4-5.0) g/dl Globulin 3.6 gm/dL Albumin/Globulin Ratio 1.0 (1-2) SARS-CoV-2 RNA (DEJON) (NEGATIVE) 02/25/21 Range/Units 18:46 WBC (4.23-9.07) K/mm3 RBC (4.63-6.08) M/mm3 Hgb (13.7-17.5) gm/dl Hct (40.1-51.0) % MCV (79.0-92.2) fl MCH (25.7-32.2) pg MCHC (32.2-35.5) g/dl RDW Std Deviation (35.1-43.9) fL Plt Count (163-337) K/mm3 MPV (9.4-12.3) fl Neut % (Auto) (34.0-67.9) % Lymph % (Auto) (21.8-53.1) % Day % (Auto) (5.3-12.2) % Eos % (Auto) (0.8-7.0) Baso % (Auto) (0.1-1.2) % Neut # (Auto) (1.78-5.38) K/mm3 Lymph # (Auto) (1.32-3.57) K/mm3 Day # (Auto) (0.30-0.82) K/mm3 Eos # (Auto) (0.04-0.54) K/mm3 Baso # (Auto) (0.01-0.08) K/mm3 PT (9.7-12.0) SECONDS INR APTT (21.7-31.4) SECONDS Sodium (136-145) mEq/L Potassium (3.5-5.1) mEq/L Chloride (98-107) mEq/L Carbon Dioxide (21-32) mEq/L Anion Gap (5-15) BUN (7-18) mg/dL Creatinine (0.7-1.3) mg/dL Est Cr Clr Drug Dosing mL/min Estimated GFR (MDRD) (>60) mL/min BUN/Creatinine Ratio (14-18) Glucose (80-115) mg/dL Calcium (8.5-10.1) mg/dL Magnesium (1.8-2.4) mg/dl Total Bilirubin (0.2-1.0) mg/dL AST (15-37) U/L ALT (16-63) U/L Alkaline Phosphatase (46-116) U/L Total Protein (6.4-8.2) g/dl Albumin (3.4-5.0) g/dl Globulin gm/dL Albumin/Globulin Ratio (1-2) SARS-CoV-2 RNA (DEJON) Negative (NEGATIVE) Meds: Medications Generic Name Dose Route Start Last Admin Trade Name Freq PRN Reason Stop Dose Admin Dextrose/Lactated Ringer's 1,000 mls @ 100 mls/hr 02/25/21 18:45 02/25/21 19:47 Dextrose 5%-Lactated Ringers IV 100 mls/hr ASDIRECTED BRUNILDA Administration Discontinued Medications Generic Name Dose Route Start Last Admin Trade Name Freq PRN Reason Stop Dose Admin Midazolam HCl Confirm 02/25/21 21:15 Midazolam 1 Mg/Ml 2 Ml Sdv Administered 02/25/21 21:16 Dose 2 mg .ROUTE .STK-MED ONE Propofol Confirm 02/25/21 21:15 Propofol 200 Mg/20 Ml Sdv Administered 02/25/21 21:16 Dose 200 mg .ROUTE .STK-MED ONE Propofol Confirm 02/25/21 21:18 Propofol 200 Mg/20 Ml Sdv Administered 02/25/21 21:19 Dose 200 mg .ROUTE .STopvizor-MED ONE - Radiology Interpretation Free Text/Narrative:: 70-year-old male presents to the ED with foreign body in his upper esophagus. It is believed to be a piece of apple. Of note he had consumed the rest of the apple but biting into it prior to the last piece getting stuck in his upper esophagus. This occurred at 1630 hrs. today and he remains obstructed. If he tries to drink water it comes right back up. This is never happened to him before. He has had foreign body sensations in his esophagus in the past which is either regurgitated up or he has been able to swallow the down. He is known to have a small hiatal hernia but does not have a lot of reflux esophagitis. He has had previous EGDs which confirm no evidence of Cotter's esophagus. His last meal other than this was at noon hour today. Plan routine labs including a coronavirus screen and ECG and chest x-ray to be done. - Re-Assessments/Exams Free Text/Narrative Re-Assessment/Exam: 02/25/21 19:13 Chest x-ray reveals hyperinflated lung belle with slight tortuosity of the thoracic aorta. Cardiac silhouette is otherwise within normal limits. There is no pulmonary infiltrates no pleural effusion and no pneumothorax. I did speak to Dr. Valenzuela on-call surgeon at about 1900 hrs. and he will attend the patient in the ED once the lab values are back which will be in about another 35 minutes or so. 02/25/21 19:55 Count is 4.26 with 47.8% neutrophils on the auto differential. Hemoglobin is 14.2 with hematocrit of 44.1. MCV is mildly elevated at 95.0. Platelet count 234,000. PT is 11.4 with an INR of 1.07. PTT is 26.2. Sodium 142 potassium of 4.3. Chloride 108 with a bicarb of 25. Anion gap is 13.3. BUN is 16 with a creatinine of 1.1 and a GFR greater than 60. Glucose is 84 calcium is 8.8. Magnesium is 1.8. Total bilirubin is 0.4 AST 19 ALT 19. Alk p hos today is mildly elevated at 127. Total protein is 7.1 with an albumin fraction of 3.5 COVID 19 test is negative. Departure - Departure Time of Disposition: 21:00 Disposition: DC/Tfer to [facility] Condition: Fair Clinical Impression: Esophageal foreign body Qualifiers: Encounter type: initial encounter Qualified Code(s): T18.108A - Unspecified foreign body in esophagus causing other injury, initial encounter - Discharge Information *PRESCRIPTION DRUG MONITORING PROGRAM REVIEWED*: Not Applicable *COPY OF PRESCRIPTION DRUG MONITORING REPORT IN PATIENT REX: Not Applicable Sepsis Event Note (ED) - Evaluation Sepsis Screening Result: No Definite Risk
--- NOTE | 2021-02-25 19:37 | CR ---
Chest: Frontal view of the chest was obtained. Comparison: No previous study. Heart size and mediastinum are normal. Lungs are clear with no acute parenchymal change. Bony structure shows nothing acute. Impression: 1. Nothing acute is seen on frontal chest x-ray. Diagnostic code #1
--- NOTE | 2021-02-25 20:46 | PCM.HP.2 ---
H&P History of Present Illness - General Date of Service: 02/25/21 Admit Problem/Dx: Admission Diagnosis/Problem Admission Diagnosis/Problem Foreign body in esophagus Source of Information: Patient History Limitations: Reports: No Limitations - History of Present Illness Initial Comments - Free Text/Narative: The patient was eating an apple around 1630 today when he felt a piece of an apple get stuck. Once that happened, he was no longer able to swallow any fluids or food. He is able to keep saliva down. He has issues with dysphagia and reports that he underwent EGD [address] Banuelos in [place] who did not see any stenosis but some stomach ulcers. he recommended the patient take PPIs for 2 weeks. He finished his 2-week dose a few weeks ago. He denies any acid reflux or regurgitation of food. He is otherwise well. No blood thinners or any history of cardiopulmonary issues. Onset of Symptoms: Reports: Today, Sudden Duration of Symptoms: Reports: Hour(s): (4), Constant Location: Reports: Neck Quality: Reports: Other (inability to swallow fluids) Improves with: Reports: None Worsens with: Reports: None - Related Data Allergies/Adverse Reactions: Allergies Allergy/AdvReac Type Severity Reaction Status Date / Time No Known Allergies Allergy Verified 07/04/20 11:45 Home Medications: Home Meds . [No Known Home Meds] 02/25/21 [History] Past Medical History HEENT History: Reports: Other (See Below) Other HEENT History: dry eyes, wears glasses, Cardiovascular History: Reports: None Respiratory History: Reports: None Gastrointestinal History: Reports: None Genitourinary History: Reports: UTI, Recurrent, Other (See Below) (Intermittent problems with urinary retention) Other Genitourinary History: self catheterization for distended bladder Musculoskeletal History: Reports: Osteoarthritis, Other (See Below) Other Musculoskeletal History: hip pain, finger fracture, knee pain, shoulder pain Neurological History: Reports: None Psychiatric History: Reports: None Endocrine/Metabolic History: Reports: None Hematologic History: Reports: Anemia Other Hematologic History: positive STEVIE antibody, elevated ESR Immunologic History: Reports: None, Other (See Below) Other Immunologic History: auto immune disease; 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 She has been on prednisone and CellCept and has had monoclonal antibody infusions in October and again in mid November for pemphigoid with really good success. He is followed by slab off mill tender in [place]. - Infectious Disease History Infectious Disease History: Reports: Other (See Below) Other Infectious Disease History: unknown - Past Surgical History Head Surgeries/Procedures: Reports: None HEENT Surgical History: Reports: Cataract Surgery Cardiovascular Surgical History: Reports: None Respiratory Surgical History: Reports: None GI Surgical History: Reports: Colonoscopy, Hernia, Inguinal Male Surgical History: Reports: None Endocrine Surgical History: Reports: None Neurological Surgical History: Reports: None Musculoskeletal Surgical History: Reports: Hip Replacement Oncologic Surgical History: Reports: None Dermatological Surgical History: Reports: None Social & Family History - Family History Family Medical History: No Pertinent Family History GI: Reports: Other (See Below) - Tobacco Use Tobacco Use Status *Q: Never Tobacco User - Caffeine Use Caffeine Use: Reports: Coffee - Recreational Drug Use Recreational Drug Use: No - Living Situation & Occupation Living situation: Reports: Occupation: Employed H&P Review of Systems - Review of Systems: Review Of Systems: See Below General: Reports: No Symptoms HEENT: Reports: No Symptoms Pulmonary: Reports: No Symptoms Cardiovascular: Reports: No Symptoms Gastrointestinal: Reports: No Symptoms Genitourinary: Reports: No Symptoms Musculoskeletal: Reports: No Symptoms Skin: Reports: No Symptoms Psychiatric: Reports: No Symptoms Exam - Exam Exam: See Below - Vital Signs Vital Signs: Last Vital Signs Temp 97.3 F 02/25/21 18:11 Pulse 70 02/25/21 18:11 Resp 20 02/25/21 18:11 BP 156/107 H 02/25/21 18:11 Pulse Ox 100 02/25/21 18:11 Weight: 107.558 kg - Exam General: Alert, Oriented, Cooperative Neck: Supple, Trachea Midline, Full Range of Motion, Other (no crepitus, non- tender) Lungs: Normal Respiratory Effort Cardiovascular: Regular Rate, Regular Rhythm GI/Abdominal Exam: Soft, Non-Tender, No Organomegaly, No Distention - Patient Data Lab Results Last 24 hrs: Laboratory Results - last 24 hr 02/25/21 02/25/21 02/25/21 Range/Units 18:35 18:35 18:35 WBC 4.26 (4.23-9.07) K/mm3 RBC 4.64 (4.63-6.08) M/mm3 Hgb 14.2 D (13.7-17.5) gm/dl Hct 44.1 (40.1-51.0) % MCV 95.0 H (79.0-92.2) fl MCH 30.6 (25.7-32.2) pg MCHC 32.2 (32.2-35.5) g/dl RDW Std Deviation 41.2 (35.1-43.9) fL Plt Count 234 (163-337) K/mm3 MPV 10.2 (9.4-12.3) fl Neut % (Auto) 47.8 (34.0-67.9) % Lymph % (Auto) 32.6 (21.8-53.1) % Major % (Auto) 15.0 H (5.3-12.2) % Eos % (Auto) 4.2 (0.8-7.0) Baso % (Auto) 0.2 (0.1-1.2) % Neut # (Auto) 2.03 (1.78-5.38) K/mm3 Lymph # (Auto) 1.39 (1.32-3.57) K/mm3 Major # (Auto) 0.64 (0.30-0.82) K/mm3 Eos # (Auto) 0.18 (0.04-0.54) K/mm3 Baso # (Auto) 0.01 (0.01-0.08) K/mm3 PT 11.4 (9.7-12.0) SECONDS INR 1.07 APTT 26.2 (21.7-31.4) SECONDS Sodium 142 (136-145) mEq/L Potassium 4.3 (3.5-5.1) mEq/L Chloride 108 H (98-107) mEq/L Carbon Dioxide 25 (21-32) mEq/L Anion Gap 13.3 (5-15) BUN 16 (7-18) mg/dL Creatinine 1.1 (0.7-1.3) mg/dL Est Cr Clr Drug Dosing 70.55 mL/min Estimated GFR (MDRD) > 60 (>60) mL/min BUN/Creatinine Ratio 14.5 (14-18) Glucose 84 (80-115) mg/dL Calcium 8.8 (8.5-10.1) mg/dL Magnesium 1.8 (1.8-2.4) mg/dl Total Bilirubin 0.4 (0.2-1.0) mg/dL AST 19 (15-37) U/L ALT 19 (16-63) U/L Alkaline Phosphatase 127 H (46-116) U/L Total Protein 7.1 (6.4-8.2) g/dl Albumin 3.5 (3.4-5.0) g/dl Globulin 3.6 gm/dL Albumin/Globulin Ratio 1.0 (1-2) SARS-CoV-2 RNA (DEJON) (NEGATIVE) 02/25/21 Range/Units 18:46 WBC (4.23-9.07) K/mm3 RBC (4.63-6.08) M/mm3 Hgb (13.7-17.5) gm/dl Hct (40.1-51.0) % MCV (79.0-92.2) fl MCH (25.7-32.2) pg MCHC (32.2-35.5) g/dl RDW Std Deviation (35.1-43.9) fL Plt Count (163-337) K/mm3 MPV (9.4-12.3) fl Neut % (Auto) (34.0-67.9) % Lymph % (Auto) (21.8-53.1) % Major % (Auto) (5.3-12.2) % Eos % (Auto) (0.8-7.0) Baso % (Auto) (0.1-1.2) % Neut # (Auto) (1.78-5.38) K/mm3 Lymph # (Auto) (1.32-3.57) K/mm3 Major # (Auto) (0.30-0.82) K/mm3 Eos # (Auto) (0.04-0.54) K/mm3 Baso # (Auto) (0.01-0.08) K/mm3 PT (9.7-12.0) SECONDS INR APTT (21.7-31.4) SECONDS Sodium (136-145) mEq/L Potassium (3.5-5.1) mEq/L Chloride (98-107) mEq/L Carbon Dioxide (21-32) mEq/L Anion Gap (5-15) BUN (7-18) mg/dL Creatinine (0.7-1.3) mg/dL Est Cr Clr Drug Dosing mL/min Estimated GFR (MDRD) (>60) mL/min BUN/Creatinine Ratio (14-18) Glucose (80-115) mg/dL Calcium (8.5-10.1) mg/dL Magnesium (1.8-2.4) mg/dl Total Bilirubin (0.2-1.0) mg/dL AST (15-37) U/L ALT (16-63) U/L Alkaline Phosphatase (46-116) U/L Total Protein (6.4-8.2) g/dl Albumin (3.4-5.0) g/dl Globulin gm/dL Albumin/Globulin Ratio (1-2) SARS-CoV-2 RNA (DEJON) Negative (NEGATIVE) Result Diagrams: 02/25/21 18:35 02/25/21 18:35 Sepsis Event Note - Evaluation Sepsis Screening Result: No Definite Risk - Focused Exam Vital Signs: Vital Signs Temp Pulse Resp BP Pulse Ox 02/25/21 18:11 97.3 F 70 20 156/107 H 100 Problem List Initiated/Reviewed/Updated: No Orders Last 24hrs: Active Orders 24 hr Category Date Time Status Patient Status [ADT] Routine ADT 02/25/21 20:34 Active EKG Documentation Completion [RC] STAT Care 02/25/21 18:33 Active Dextrose 5%-Lactated Ringers 1,000 ml Med 02/25/21 18:45 Active IV ASDIRECTED Schedule Procedure [COMM] Stat Oth 02/25/21 20:35 Ordered Medication Orders Dextrose/Lactated Ringer's (Dextrose 5%-Lactated Ringers) 1,000 mls @ 100 mls/hr IV ASDIRECTED BRUNILDA Last Admin: 02/25/21 19:47 Dose: 100 mls/hr Documented by: JUDIE Assessment/Plan Comment:: Patient has esophageal food impaction. I recommended EGD with disimpaction. We discussed possible biopsies and possible dilation. We discussed risks, benefits and alternatives. Specific risks discussed included perforation and bleeding. Informed consent was signed. We will proceed with the procedure.
--- NOTE | 2021-02-25 21:05 | PCM.PREANE ---
Preanesthetic Assessment - Procedure Proposed Procedure: EGD - Anesthesia/Transfusion/Family Hx Anesthesia History: Prior Anesthesia Without Reaction Family History of Anesthesia Reaction: No Transfusion History: No Prior Transfusion(s) Intubation History: Unknown - Review of Systems General: Fatigue Pulmonary: No Symptoms Cardiovascular: No Symptoms Gastrointestinal: Difficulty Swallowing Neurological: No Symptoms Other: Reports: None - Physical Assessment NPO Status Date: 02/25/21 NPO Status Time: 12:00 Vital Signs: Last Vital Signs Temp 36.3 C 02/25/21 18:11 Pulse 70 02/25/21 18:11 Resp 20 02/25/21 18:11 BP 156/107 H 02/25/21 18:11 Pulse Ox 100 02/25/21 18:11 Height: 1.83 m Weight: 107.558 kg ASA Class: 2E Mental Status: Alert & Oriented x3 Airway Class: Mallampati = 1 Dentition: Reports: Normal Dentition, [place](s), Implants (top right x1, bottom left X1) Thyro-Mental Finger Breadths: 3 Mouth Opening Finger Breadths: 3 ROM/Head Extension: Full Lungs: Clear to Auscultation, Normal Respiratory Effort Cardiovascular: Regular Rate, Regular Rhythm - Lab Values: Laboratory Last Values WBC 4.26 K/mm3 (4.23-9.07) 02/25/21 18:35 RBC 4.64 M/mm3 (4.63-6.08) 02/25/21 18:35 Hgb 14.2 gm/dl (13.7-17.5) D 02/25/21 18:35 Hct 44.1 % (40.1-51.0) 02/25/21 18:35 MCV 95.0 fl (79.0-92.2) H 02/25/21 18:35 MCH 30.6 pg (25.7-32.2) 02/25/21 18:35 MCHC 32.2 g/dl (32.2-35.5) 02/25/21 18:35 RDW Std Deviation 41.2 fL (35.1-43.9) 02/25/21 18:35 Plt Count 234 K/mm3 (163-337) 02/25/21 18:35 MPV 10.2 fl (9.4-12.3) 02/25/21 18:35 Neut % (Auto) 47.8 % (34.0-67.9) 02/25/21 18:35 Lymph % (Auto) 32.6 % (21.8-53.1) 02/25/21 18:35 [place] % (Auto) 15.0 % (5.3-12.2) H 02/25/21 18:35 Eos % (Auto) 4.2 (0.8-7.0) 02/25/21 18:35 Baso % (Auto) 0.2 % (0.1-1.2) 02/25/21 18:35 Neut # (Auto) 2.03 K/mm3 (1.78-5.38) 02/25/21 18:35 Lymph # (Auto) 1.39 K/mm3 (1.32-3.57) 02/25/21 18:35 [place] # (Auto) 0.64 K/mm3 (0.30-0.82) 02/25/21 18:35 Eos # (Auto) 0.18 K/mm3 (0.04-0.54) 02/25/21 18:35 Baso # (Auto) 0.01 K/mm3 (0.01-0.08) 02/25/21 18:35 PT 11.4 SECONDS (9.7-12.0) 02/25/21 18:35 INR 1.07 02/25/21 18:35 APTT 26.2 SECONDS (21.7-31.4) 02/25/21 18:35 Sodium 142 mEq/L (136-145) 02/25/21 18:35 Potassium 4.3 mEq/L (3.5-5.1) 02/25/21 18:35 Chloride 108 mEq/L (98-107) H 02/25/21 18:35 Carbon Dioxide 25 mEq/L (21-32) 02/25/21 18:35 Anion Gap 13.3 (5-15) 02/25/21 18:35 BUN 16 mg/dL (7-18) 02/25/21 18:35 Creatinine 1.1 mg/dL (0.7-1.3) 02/25/21 18:35 Est Cr Clr Drug Dosing 70.55 mL/min 02/25/21 18:35 Estimated GFR (MDRD) > 60 mL/min (>60) 02/25/21 18:35 BUN/Creatinine Ratio 14.5 (14-18) 02/25/21 18:35 Glucose 84 mg/dL (80-115) 02/25/21 18:35 Calcium 8.8 mg/dL (8.5-10.1) 02/25/21 18:35 Magnesium 1.8 mg/dl (1.8-2.4) 02/25/21 18:35 Total Bilirubin 0.4 mg/dL (0.2-1.0) 02/25/21 18:35 AST 19 U/L (15-37) 02/25/21 18:35 ALT 19 U/L (16-63) 02/25/21 18:35 Alkaline Phosphatase 127 U/L (46-116) H 02/25/21 18:35 Total Protein 7.1 g/dl (6.4-8.2) 02/25/21 18:35 Albumin 3.5 g/dl (3.4-5.0) 02/25/21 18:35 Globulin 3.6 gm/dL 02/25/21 18:35 Albumin/Globulin Ratio 1.0 (1-2) 02/25/21 18:35 SARS-CoV-2 RNA (DEJON) Negative (NEGATIVE) 02/25/21 18:46 - Allergies Allergies/Adverse Reactions: Allergies Allergy/AdvReac Type Severity Reaction Status Date / Time No Known Allergies Allergy Verified 07/04/20 11:45 - Blood Blood Available: No Product(s) Available: None - Anesthesia Plan Pre-Op Medication Ordered: None - Acknowledgements Anesthesia Type Planned: MAC Pt an Appropriate Candidate for the Planned Anesthesia: Yes Alternatives and Risks of Anesthesia Discussed w Pt/Guardian: Yes Pt/Guardian Understands and Agrees with Anesthesia Plan: Yes PreAnesthesia Questionnaire HEENT History: Reports: Other (See Below) Other HEENT History: dry eyes, wears glasses, Cardiovascular History: Reports: None Respiratory History: Reports: None Gastrointestinal History: Reports: None Genitourinary History: Reports: UTI, Recurrent, Other (See Below) (Intermittent problems with urinary retention) Other Genitourinary History: self catheterization for distended bladder Musculoskeletal History: Reports: Osteoarthritis, Other (See Below) Other Musculoskeletal History: hip pain, finger fracture, knee pain, shoulder pain Neurological History: Reports: None Psychiatric History: Reports: None Endocrine/Metabolic History: Reports: None Hematologic History: Reports: Anemia Other Hematologic History: positive STEVIE antibody, elevated ESR Immunologic History: Reports: None, Other (See Below) Other Immunologic History: auto immune disease; 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 She has been on prednisone and CellCept and has had monoclonal antibody infusions in October and again in mid November for pemphigoid with really good success. He is followed by screw cutter in [place]. - Infectious Disease History Infectious Disease History: Reports: Other (See Below) Other Infectious Disease History: unknown - Past Surgical History Head Surgeries/Procedures: Reports: None HEENT Surgical History: Reports: Cataract Surgery Cardiovascular Surgical History: Reports: None Respiratory Surgical History: Reports: None GI Surgical History: Reports: Colonoscopy, Hernia, Inguinal Male Surgical History: Reports: None Endocrine Surgical History: Reports: None Neurological Surgical History: Reports: None Musculoskeletal Surgical History: Reports: Hip Replacement Oncologic Surgical History: Reports: None Dermatological Surgical History: Reports: None - SUBSTANCE USE Tobacco Use Status *Q: Never Tobacco User Tobacco Use Within Last Twelve Months: No Second Hand Smoke Exposure: No Days Per Week of Alcohol Use: 7 Number of Drinks Per Day: 4 Total Drinks Per Week: 28 Recreational Drug Use History: No - HOME MEDS Home Medications: Home Meds . [No Known Home Meds] 02/25/21 [History] - CURRENT (IN HOUSE) MEDS Current Meds: Current Medications Dextrose/Lactated Ringer's (Dextrose 5%-Lactated Ringers) 1,000 mls @ 100 mls/hr IV ASDIRECTED [facility], [facility] Last Admin: 02/25/21 19:47 Dose: 100 mls/hr Documented by:
--- NOTE | 2021-02-25 21:56 | PCM48HPAN ---
Post Anesthesia Note - EVALUATION WITHIN 48HRS OF ANESTHETIC Vital Signs in Normal Range: Yes Patient Participated in Evaluation: Yes Respiratory Function Stable: Yes Airway Patent: Yes Cardiovascular Function Stable: Yes Hydration Status Stable: Yes Pain Control Satisfactory: Yes Nausea and Vomiting Control Satisfactory: Yes Mental Status Recovered: Yes Vital Signs: Last Vital Signs Temp 36.3 C 02/25/21 18:11 Pulse 70 02/25/21 18:11 Resp 20 02/25/21 18:11 BP 156/107 H 02/25/21 18:11 Pulse Ox 100 02/25/21 18:11 - COMMENTS/OBSERVATIONS Free Text/Narrative:: no anesthesia complications noted
--- NOTE | 2021-02-25 22:42 | PROC ---
DATE OF OPERATION: 02/25/2021 SURGEON: Jennifer Valenzuela MD PREOPERATIVE DIAGNOSIS: Dysphagia and esophageal food impaction. POSTOPERATIVE DIAGNOSES: 1. 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 2. Esophagitis in the mid and distal esophagus. 3. Gastritis in the gastric antrum. OPERATION PERFORMED: Esophagogastroduodenoscopy with foreign body removal and esophageal dilation. ANESTHESIA: Monitored anesthesia care. ESTIMATED BLOOD LOSS: Minimal. COMPLICATIONS: None. INDICATIONS AND CONSENT: The patient is a 70-year-old male who has been having long-standing dysphagia problems. The patient underwent an EGD about 2 months ago, per report that the EGD was normal except for some ulcerations in the stomach. The patient was asked to take PPI for 2 weeks. The patient did that. However, today, the patient was eating an apple and a piece of an apple got stuck into his esophagus. The patient was not able to tolerate food or liquids. After that, the patient came to the ED and was evaluated, was otherwise stable. I was consulted for the patient. I confirmed the findings, offered the patient EGD with possible dilation. We discussed risks, benefits, and alternatives, specifically perforation and bleeding, and informed consent was obtained. DESCRIPTION OF PROCEDURE: The patient was taken to the procedure room, placed in left lateral decubitus position. Then, a time-out was performed. Monitored anesthesia care was induced, began, and a bite block was placed. Then, an Olympus scope was placed into the mouth and taken down slowly while evaluating the esophagus. Around 20 cm down from the incisors, there was clearly a foreign body or food impaction into this area. We attempted to remove the food impaction with prong forceps and Sanchez net. They were not successful. Then, we attempted to push the food down and this was successful. The food bolus was pushed down and went past the specific stenosis. Once it was passed, it fell down into the stomach. However, the scope was not able to be passed through that stenotic area. Therefore, a decision was made to take some biopsies with cold forceps at the stenosis and dilate it. Biopsies were taken with cold forceps and a TTS balloon dilator was put into the stenotic area and this was dilated from 10 to 12 mm. Once this was done, the scope was then able to be passed through this area with moderate pressure and taken all the way to the second portion of duodenum. Entire examined duodenum was normal. The antrum appeared to have mild gastritis marked by linear areas of erythema. The antrum was biopsied. On retroflexion, we were able to visualize a small amount of fluid in the fundus as well as the previous foreign body, presumably an apple. Then, GE junction was patulous but no significant hiatal hernia. Then, we went back into the esophagus. The Z-line was at 42 cm. It appeared fairly regular, but right after the GE junction appeared to be whitish plaques, almost like scar tissue in the esophagus all the way to around 19 cm just distal to the strictured area. Biopsies were taken with cold forceps in the distal esophagus as well as the mid esophagus to further evaluate the phenomena. Then, I went back to the strictured area. This area was still stenotic. Therefore, decision was made to dilate further. A 12, 13.5, and 15 TTS balloon dilator was placed and the stricture was dilated up to 13.5 mm. Once this was done, the stricture was moderately open. The scope was able to be passed through this area with minimal pressure and the strictured area had minimal mucosal breakage. This time, we decided to stop with dilation to avoid any complications. The scope was passed back into the stomach. Air was suctioned out and procedure was concluded. The patient will be placed back on omeprazole to take these for 30 days. The patient will follow up with me in clinic for discussion of the pathology and today's findings. MMODAL /[id number] MTDD
== END | disposition home or self-care (01) ==
LOC: JD.ED 17:51 → JD.SDS 20:34
PROVIDERS: ATTEND Surgery
DX: T18.128A Food in esophagus causing other injury, initial encounter (principal); K22.10 Ulcer of esophagus without bleeding; K29.70 Gastritis, unspecified, without bleeding; K22.2 Esophageal obstruction; K31.89 Other diseases of stomach and duodenum; Z01.812 Encounter for preprocedural laboratory examination; Z20.822 Contact with and (suspected) exposure to COVID-19; Z98.890 Other specified postprocedural states
CPT/HCPCS: 36415; 43239; 43249; 71045; 80053; 83735; 85025; 85610; 85730; 87635; 93005; 99285; J2250; J2704; J7121; 00731; 93010; 99140; 99284; U0002

== ENCOUNTER → 2022-12-02 | Day surgery (SDC) | payer BC, MEDICARE, OTHER ==
[2022-12-02] MEDS: Brimonidine 0.2% Ophth Soln 5 ML Bottle EYERT SCH ×2 (13:00→14:12)
[2022-12-02] MEDS: Phenylephrine 2.5% Ophth Soln 2 ML Bot EYERT SCH ×2 (13:04→13:12)
[2022-12-02] MEDS: Tropicamide 1% Ophth Soln 15 ML Bottle EYERT SCH ×2 (13:08→13:15)
== END ==
LOC: JD.SDS 12:49
PROVIDERS: ATTEND Ophthalmology
DX: H26.493 Other secondary cataract, bilateral (principal); H35.342 Macular cyst, hole, or pseudohole, left eye; H16.223 Keratoconjunctivitis sicca, not specified as Sjogren's, bilateral; H35.3131 Nonexudative age-related macular degeneration, bilateral, early dry stage; H16.103 Unspecified superficial keratitis, bilateral; L12.0 Bullous pemphigoid; D89.89 Other specified disorders involving the immune mechanism, not elsewhere classified; Z98.890 Other specified postprocedural states; Z87.891 Personal history of nicotine dependence; Z79.899 Other long term (current) drug therapy; Z96.1 Presence of intraocular lens
CPT/HCPCS: A9270-GY; J3490

== ENCOUNTER 2023-02-23 20:35 | Emergency (ER) | payer BC, OTHER ==
[2023-02-23] MEDS ORDERED: Glucagon,Human Recombinant 1 MG Vial IVPUSH ONE (21:01)
[2023-02-23] MEDS ORDERED: Sodium Chloride 0.9% 10 ML Syringe FLUSH PRN (21:01)
[2023-02-23] MEDS ORDERED: LORazepam 2 MG/ML SDV IVPUSH ONE (21:05)
== END 2023-02-23 21:38 | disposition home or self-care (01) ==
LOC: JD.ED 20:35
DX: T18.128A Food in esophagus causing other injury, initial encounter (principal)
CPT/HCPCS: 99282; 99283

== ENCOUNTER 2024-07-14 20:22 | Emergency (ER) | payer OTHER | END 2024-07-14 20:30 | disposition left against medical advice (07) | LOC: JD.ED 20:22 | DX: Z53.21 Procedure and treatment not carried out due to patient leaving prior to being seen by health care provider (principal) ==